=== PATIENT | male | born 1965 ===

== ENCOUNTER 2020-04-09 13:46 | Inpatient (IN) | payer OTHER, SELFPAY ==
[2020-04-10] MEDS ORDERED: Albuterol Sulfate 2.5 mg/3 ml Neb NEB PRN (02:23)
[2020-04-10] MEDS ORDERED: Dextrose 50% Abboject 50 ML SYRINGE SLOW IVP PRN (02:25)
[2020-04-10] MEDS ORDERED: Dextrose 5% in Water 1,000 ML IV PRN (02:25)
[2020-04-10 02:52] LABS: #Basophils 0.1 thou/uL (0.0-0.2); #Lymphocytes 1.2 thou/uL (1.20-3.40); #Monocytes 1.2 thou/uL (0.11-0.59); #Neutrophils 16.4 thou/uL (1.40-6.50); %Basophils 0.6 % (0.0-1.0); %Eosinophils 0.2 % (0.0-10.0); %Lymphocytes 6.4 % (21.0-51.0); %Monocytes 6.3 % (0.0-10.0); %Neutrophils 86.5 % (42.0-75.0); Hemoglobin 13.5 g/dL (14.0-18.0); Mean Corpuscular HGB CONC 32.5 g/dL (32.0-36.0); Mean Corpuscular Hemoglobin 29.4 pg (27.0-31.0); Mean Corpuscular Volume 90.2 fL (78.0-98.0); Mean Platelet Volume 8.4 fL (7.4-10.4); Platelet Count 322 thou/uL (130-400); RBC Distribution Width 13.6 % (11.5-14.5); Red Blood Cell (RBC) Count 4.59 mill/uL (4.70-6.10); White Blood Cell (WBC) Count 18.9 thou/uL (4.8-10.8)
[2020-04-10 03:01] LABS: ALT (SGPT) 93 U/L (8-55); AST (SGOT) 59 U/L (5-34); Albumin 3.3 g/dL (3.5-5.0); Alkaline Phosphatase 146 U/L (40-110); Anion Gap 20 mmol/L (10-20); BUN (Urea Nitrogen) 32 mg/dL (8.4-25.7); Bilirubin, Total 0.6 mg/dL (0.2-1.2); Calc. Creatinine Clearance 183 mL/min (70-130); Calcium 9.7 mg/dL (7.8-10.44); Carbon Dioxide 19 mmol/L (22-29); Chloride 103 mmol/L (98-107); Globulin 4.5 g/dL (2.4-3.5); Glucose 146 mg/dL (70-105); Potassium 4.7 mmol/L (3.5-5.1); Protein, Total 7.8 g/dL (6.0-8.3); Sodium 137 mmol/L (136-145)
[2020-04-10] MEDS: Guaifenesin DM 100-10/5 ML UDCUP PO PRN ×3 (03:30→12:23)
[2020-04-10] MEDS: Ascorbic Acid 500 mg Chewable Tablet PO SCH (08:12)
[2020-04-10] MEDS: Dexamethasone 4 MG TAB PO SCH (08:12)
[2020-04-10] MEDS: Zinc Sulfate 220 MG CAP PO SCH (08:13)
[2020-04-10] MEDS ORDERED: Enoxaparin Sodium 40 MG/0.4 ML SYRINGE SC SCH (09:00)
[2020-04-10] MEDS ORDERED: Non-Formulary Item 1 EACH (Dulaglutide [Trulicity] 0.75 MG/0.5 ML Pen.Injctr) SC SCH (12:00)
[2020-04-10] MEDS: Acetaminophen 325 MG TAB PO PRN (12:23)
[2020-04-10] MEDS: Enoxaparin Sodium 40 MG/0.4 ML SYRINGE SC SCH (21:34)
[2020-04-10] MEDS: metFORMIN 500 MG TAB PO SCH (21:35)
[2020-04-10] MEDS: Fish Oil 1,000 MG CAP PO SCH (21:35)
[2020-04-10] MEDS: Lisinopril 10 MG TAB PO SCH (21:36)
[2020-04-10] MEDS: Empagliflozin 10 MG TAB PO SCH (21:40)
[2020-04-10] MEDS: HumaLOG 300 UNITS/3 ML VIAL SC PRN (21:41)
[2020-04-11] MEDS: Guaifenesin DM 100-10/5 ML UDCUP PO PRN ×3 (06:13→18:19)
[2020-04-11 07:29] LABS: Hemoglobin 13.9 g/dL (14.0-18.0); Mean Corpuscular HGB CONC 33.5 g/dL (32.0-36.0); Mean Corpuscular Hemoglobin 30.1 pg (27.0-31.0); Mean Corpuscular Volume 89.7 fL (78.0-98.0); Mean Platelet Volume 8.8 fL (7.4-10.4); Platelet Count 322 thou/uL (130-400); RBC Distribution Width 13.6 % (11.5-14.5); Red Blood Cell (RBC) Count 4.63 mill/uL (4.70-6.10); White Blood Cell (WBC) Count 16.8 thou/uL (4.8-10.8)
[2020-04-11] MEDS: Atorvastatin Calcium 40 MG TAB PO SCH (07:39)
[2020-04-11] MEDS: Ascorbic Acid 500 mg Chewable Tablet PO SCH ×2 (07:39→20:45)
[2020-04-11] MEDS: Dexamethasone 4 MG TAB PO SCH (07:39)
[2020-04-11] MEDS: Cholecalciferol (Vitamin D3) 400 UNITS TAB PO SCH (07:40)
[2020-04-11] MEDS: metFORMIN 500 MG TAB PO SCH ×2 (07:40→20:45)
[2020-04-11] MEDS: Zinc Sulfate 220 MG CAP PO SCH (07:40)
[2020-04-11] MEDS: Enoxaparin Sodium 40 MG/0.4 ML SYRINGE SC SCH ×2 (07:40→20:47)
[2020-04-11] MEDS: Fish Oil 1,000 MG CAP PO SCH ×2 (07:40→20:45)
[2020-04-11 07:43] LABS: ALT (SGPT) 90 U/L (8-55); AST (SGOT) 62 U/L (5-34); Albumin 3.3 g/dL (3.5-5.0); Alkaline Phosphatase 130 U/L (40-110); Anion Gap 13 mmol/L (10-20); BUN (Urea Nitrogen) 31 mg/dL (8.4-25.7); Bilirubin, Total 0.6 mg/dL (0.2-1.2); Calc. Creatinine Clearance 174 mL/min (70-130); Calcium 9.7 mg/dL (7.8-10.44); Carbon Dioxide 25 mmol/L (22-29); Chloride 103 mmol/L (98-107); Globulin 4.5 g/dL (2.4-3.5); Glucose 118 mg/dL (70-105); Potassium 4.2 mmol/L (3.5-5.1); Protein, Total 7.8 g/dL (6.0-8.3); Sodium 137 mmol/L (136-145)
[2020-04-11] MEDS ORDERED: Ondansetron PF 4 MG/2 ML Vial IVP PRN (08:42)
[2020-04-11 08:46] LABS: Band 10 % (5-11); Lymphocytes 10 % (21-51); MDiff Complete? YES; Metamyelocyte 1 % (0-0); Monocytes 4 % (0-10); Myelocyte 1 % (0-0); Neutrophil 73 % (42-75); Platelet Morphology Comment Appears Adequate; Polychromasia SLIGHT = 2-3 cells (100X) (0-2/hpf); Reactive Lymphocytes 1 % (0-10)
[2020-04-11] MEDS: Empagliflozin 10 MG TAB PO SCH ×2 (09:01→20:46)
[2020-04-11] MEDS: Lisinopril 10 MG TAB PO SCH (20:59)
[2020-04-12 05:49] LABS: ALT (SGPT) 81 U/L (8-55); AST (SGOT) 50 U/L (5-34); Albumin 3.2 g/dL (3.5-5.0); Alkaline Phosphatase 122 U/L (40-110); Anion Gap 16 mmol/L (10-20); BUN (Urea Nitrogen) 26 mg/dL (8.4-25.7); Bilirubin, Total 0.8 mg/dL (0.2-1.2); CRP (Inflammatory) 13.32 mg/dL (= or < 0.5); Calc. Creatinine Clearance 151 mL/min (70-130); Calcium 9.6 mg/dL (7.8-10.44); Carbon Dioxide 26 mmol/L (22-29); Chloride 103 mmol/L (98-107); Globulin 4.7 g/dL (2.4-3.5); Glucose 88 mg/dL (70-105); Potassium 4.7 mmol/L (3.5-5.1); Protein, Total 7.9 g/dL (6.0-8.3); Sodium 140 mmol/L (136-145)
[2020-04-12 05:57] LABS: Band 5 % (5-11); Lymphocytes 10 % (21-51); MDiff Complete? YES; Mean Corpuscular HGB CONC 33.1 g/dL (32.0-36.0); Mean Corpuscular Hemoglobin 30.1 pg (27.0-31.0); Mean Corpuscular Volume 91.2 fL (78.0-98.0); Mean Platelet Volume 8.3 fL (7.4-10.4); Metamyelocyte 2 % (0-0); Monocytes 6 % (0-10); Myelocyte 3 % (0-0); Neutrophil 72 % (42-75); Platelet Count 337 thou/uL (130-400); RBC Distribution Width 13.4 % (11.5-14.5); Reactive Lymphocytes 2 % (0-10); Red Blood Cell (RBC) Count 4.63 mill/uL (4.70-6.10); White Blood Cell (WBC) Count 15.6 thou/uL (4.8-10.8)
[2020-04-12] MEDS: Ascorbic Acid 500 mg Chewable Tablet PO SCH ×2 (08:37→21:58)
[2020-04-12] MEDS: Dexamethasone 4 MG TAB PO SCH (08:37)
[2020-04-12] MEDS: Atorvastatin Calcium 40 MG TAB PO SCH (08:37)
[2020-04-12] MEDS: Cholecalciferol (Vitamin D3) 400 UNITS TAB PO SCH (08:38)
[2020-04-12] MEDS: Fish Oil 1,000 MG CAP PO SCH ×2 (08:38→21:58)
[2020-04-12] MEDS: metFORMIN 500 MG TAB PO SCH (08:38)
[2020-04-12] MEDS: Enoxaparin Sodium 40 MG/0.4 ML SYRINGE SC SCH ×2 (08:38→21:58)
[2020-04-12] MEDS: Empagliflozin 10 MG TAB PO SCH (08:38)
[2020-04-12] MEDS: Zinc Sulfate 220 MG CAP PO SCH (08:38)
[2020-04-12] MEDS: Guaifenesin DM 100-10/5 ML UDCUP PO PRN (08:39)
[2020-04-12] MEDS: Insulin Glargine 15 UNITS in Pre-Filled Syringe 1 EACH SC SCH (21:59)
[2020-04-12] MEDS: Lisinopril 10 MG TAB PO SCH (22:04)
[2020-04-13 07:25] LABS: ALT (SGPT) 68 U/L (8-55); AST (SGOT) 48 U/L (5-34); Albumin 3.3 g/dL (3.5-5.0); Alkaline Phosphatase 111 U/L (40-110); Anion Gap 16 mmol/L (10-20); BUN (Urea Nitrogen) 23 mg/dL (8.4-25.7); Calc. Creatinine Clearance 161 mL/min (70-130); Calcium 9.9 mg/dL (7.8-10.44); Carbon Dioxide 25 mmol/L (22-29); Chloride 100 mmol/L (98-107); Globulin 4.8 g/dL (2.4-3.5); Glucose 83 mg/dL (70-105); Potassium 4.9 mmol/L (3.5-5.1); Protein, Total 8.1 g/dL (6.0-8.3); Sodium 136 mmol/L (136-145)
[2020-04-13] MEDS: Guaifenesin DM 100-10/5 ML UDCUP PO PRN (07:43)
[2020-04-13] MEDS: Atorvastatin Calcium 40 MG TAB PO SCH (07:44)
[2020-04-13] MEDS: Fish Oil 1,000 MG CAP PO SCH ×2 (07:44→20:36)
[2020-04-13] MEDS: Dexamethasone 4 MG TAB PO SCH (07:44)
[2020-04-13] MEDS: Ascorbic Acid 500 mg Chewable Tablet PO SCH ×2 (07:44→20:36)
[2020-04-13] MEDS: Zinc Sulfate 220 MG CAP PO SCH (07:44)
[2020-04-13] MEDS: Enoxaparin Sodium 40 MG/0.4 ML SYRINGE SC SCH ×2 (07:44→20:36)
[2020-04-13] MEDS: Cholecalciferol (Vitamin D3) 400 UNITS TAB PO SCH (07:44)
[2020-04-13 10:10] LABS: Band 15 % (5-11); Hemoglobin 14.1 g/dL (14.0-18.0); Lymphocytes 10 % (21-51); MDiff Complete? YES; Mean Corpuscular HGB CONC 32.8 g/dL (32.0-36.0); Mean Corpuscular Hemoglobin 29.6 pg (27.0-31.0); Mean Corpuscular Volume 90.2 fL (78.0-98.0); Mean Platelet Volume 9.5 fL (7.4-10.4); Monocytes 3 % (0-10); Myelocyte 1 % (0-0); Neutrophil 70 % (42-75); Platelet Count 332 thou/uL (130-400); Platelet Morphology Comment Appears Adequate; RBC Distribution Width 13.6 % (11.5-14.5); RBC Morphology Normal; Reactive Lymphocytes 1 % (0-10); Red Blood Cell (RBC) Count 4.78 mill/uL (4.70-6.10); White Blood Cell (WBC) Count 17.7 thou/uL (4.8-10.8)
[2020-04-13] MEDS: Senokot S 8.6-50 MG TAB PO PRN (10:38)
[2020-04-13] MEDS: HumaLOG 300 UNITS/3 ML VIAL SC PRN (17:11)
[2020-04-13] MEDS: Lisinopril 10 MG TAB PO SCH ×2 (20:36→21:00)
[2020-04-13] MEDS: Insulin Glargine 15 UNITS in Pre-Filled Syringe 1 EACH SC SCH (20:37)
[2020-04-14 06:51] LABS: Hemoglobin 14.2 g/dL (14.0-18.0); Mean Corpuscular HGB CONC 32.8 g/dL (32.0-36.0); Mean Corpuscular Hemoglobin 29.8 pg (27.0-31.0); Mean Corpuscular Volume 90.7 fL (78.0-98.0); Mean Platelet Volume 8.6 fL (7.4-10.4); Platelet Count 313 thou/uL (130-400); RBC Distribution Width 13.3 % (11.5-14.5); Red Blood Cell (RBC) Count 4.79 mill/uL (4.70-6.10); White Blood Cell (WBC) Count 19.7 thou/uL (4.8-10.8)
[2020-04-14 07:23] LABS: ALT (SGPT) 78 U/L (8-55); AST (SGOT) 51 U/L (5-34); Alkaline Phosphatase 107 U/L (40-110); Anion Gap 15 mmol/L (10-20); BUN (Urea Nitrogen) 21 mg/dL (8.4-25.7); Bilirubin, Total 0.9 mg/dL (0.2-1.2); CRP (Inflammatory) 15.23 mg/dL (= or < 0.5); Calc. Creatinine Clearance 151 mL/min (70-130); Calcium 9.4 mg/dL (7.8-10.44); Carbon Dioxide 25 mmol/L (22-29); Chloride 98 mmol/L (98-107); Globulin 4.5 g/dL (2.4-3.5); Glucose 94 mg/dL (70-105); Potassium 4.5 mmol/L (3.5-5.1); Protein, Total 7.5 g/dL (6.0-8.3); Sodium 133 mmol/L (136-145)
[2020-04-14 07:39] LABS: Band 12 % (5-11); Lymphocytes 9 % (21-51); MDiff Complete? YES; Metamyelocyte 3 % (0-0); Monocytes 2 % (0-10); Myelocyte 1 % (0-0); Neutrophil 72 % (42-75); Platelet Morphology Comment Appears Adequate; Polychromasia SLIGHT = 2-3 cells (100X) (0-2/hpf); Reactive Lymphocytes 1 % (0-10)
[2020-04-14] MEDS: Guaifenesin DM 100-10/5 ML UDCUP PO PRN (08:29)
[2020-04-14] MEDS: Enoxaparin Sodium 40 MG/0.4 ML SYRINGE SC SCH ×2 (08:29→21:37)
[2020-04-14] MEDS: Atorvastatin Calcium 40 MG TAB PO SCH (08:30)
[2020-04-14] MEDS: Ascorbic Acid 500 mg Chewable Tablet PO SCH ×2 (08:30→21:37)
[2020-04-14] MEDS: Fish Oil 1,000 MG CAP PO SCH ×2 (08:30→21:37)
[2020-04-14] MEDS: Zinc Sulfate 220 MG CAP PO SCH (08:30)
[2020-04-14] MEDS: Cholecalciferol (Vitamin D3) 400 UNITS TAB PO SCH (08:30)
[2020-04-14] MEDS: Senokot S 8.6-50 MG TAB PO PRN (08:30)
[2020-04-14] MEDS: Dexamethasone 4 MG TAB PO SCH (08:30)
[2020-04-14] MEDS: HumaLOG 300 UNITS/3 ML VIAL SC PRN ×3 (12:02→21:42)
[2020-04-14] MEDS: Insulin Glargine 15 UNITS in Pre-Filled Syringe 1 EACH SC SCH (21:36)
[2020-04-14] MEDS: Doxycycline 100 MG CAP PO SCH (21:37)
[2020-04-14] MEDS: Lisinopril 10 MG TAB PO SCH (21:40)
[2020-04-15 05:51] LABS: ALT (SGPT) 110 U/L (8-55); AST (SGOT) 62 U/L (5-34); Albumin 2.9 g/dL (3.5-5.0); Alkaline Phosphatase 130 U/L (40-110); Anion Gap 16 mmol/L (10-20); BUN (Urea Nitrogen) 19 mg/dL (8.4-25.7); Bilirubin, Total 0.9 mg/dL (0.2-1.2); CRP (Inflammatory) 19.58 mg/dL (= or < 0.5); Calc. Creatinine Clearance 151 mL/min (70-130); Calcium 9.3 mg/dL (7.8-10.44); Carbon Dioxide 22 mmol/L (22-29); Chloride 99 mmol/L (98-107); Globulin 4.6 g/dL (2.4-3.5); Glucose 104 mg/dL (70-105); Potassium 4.2 mmol/L (3.5-5.1); Protein, Total 7.5 g/dL (6.0-8.3); Sodium 133 mmol/L (136-145)
[2020-04-15 07:53] LABS: Hemoglobin 13.9 g/dL (14.0-18.0); Mean Corpuscular HGB CONC 31.3 g/dL (32.0-36.0); Mean Corpuscular Hemoglobin 28.2 pg (27.0-31.0); Platelet Count 236 thou/uL (130-400); RBC Distribution Width 13.5 % (11.5-14.5); Red Blood Cell (RBC) Count 4.94 mill/uL (4.70-6.10); White Blood Cell (WBC) Count 17.9 thou/uL (4.8-10.8)
[2020-04-15 08:08] LABS: Band 10 % (5-11); Eosinophils 1 % (0-10); Lymphocytes 11 % (21-51); MDiff Complete? YES; Metamyelocyte 2 % (0-0); Monocytes 1 % (0-10); Myelocyte 3 % (0-0); Neutrophil 71 % (42-75); Nucleated RBC 1 % (0); Platelet Morphology Comment Appears Adequate; Polychromasia SLIGHT = 2-3 cells (100X) (0-2/hpf); Reactive Lymphocytes 1 % (0-10); Vacuoles SLIGHT
[2020-04-15] MEDS: Ascorbic Acid 500 mg Chewable Tablet PO SCH ×2 (08:20→21:45)
[2020-04-15] MEDS: Enoxaparin Sodium 40 MG/0.4 ML SYRINGE SC SCH ×2 (08:20→21:45)
[2020-04-15] MEDS: Zinc Sulfate 220 MG CAP PO SCH (08:20)
[2020-04-15] MEDS: Doxycycline 100 MG CAP PO SCH ×2 (08:21→21:45)
[2020-04-15] MEDS: Dexamethasone 4 MG TAB PO SCH ×2 (08:21→19:15)
[2020-04-15] MEDS: Atorvastatin Calcium 40 MG TAB PO SCH (08:21)
[2020-04-15] MEDS: Cholecalciferol (Vitamin D3) 400 UNITS TAB PO SCH (08:21)
[2020-04-15] MEDS: Fish Oil 1,000 MG CAP PO SCH ×2 (08:21→21:45)
[2020-04-15] MEDS: Lisinopril 10 MG TAB PO SCH (21:45)
[2020-04-15] MEDS: HumaLOG 300 UNITS/3 ML VIAL SC PRN (21:46)
[2020-04-15] MEDS: Insulin Glargine 15 UNITS in Pre-Filled Syringe 1 EACH SC SCH (21:46)
[2020-04-16 06:08] LABS: #Eosinphils 0.1 thou/uL (0.0-0.7); #Monocytes 0.3 thou/uL (0.11-0.59); #Neutrophils 12.9 thou/uL (1.40-6.50); %Basophils 0.1 % (0.0-1.0); %Eosinophils 0.5 % (0.0-10.0); %Lymphocytes 7.3 % (21.0-51.0); %Monocytes 1.8 % (0.0-10.0); %Neutrophils 90.3 % (42.0-75.0); Hemoglobin 14.2 g/dL (14.0-18.0); Mean Corpuscular HGB CONC 32.3 g/dL (32.0-36.0); Mean Corpuscular Hemoglobin 28.8 pg (27.0-31.0); Mean Corpuscular Volume 89.3 fL (78.0-98.0); Platelet Count 310 thou/uL (130-400); RBC Distribution Width 13.4 % (11.5-14.5); Red Blood Cell (RBC) Count 4.95 mill/uL (4.70-6.10); White Blood Cell (WBC) Count 14.2 thou/uL (4.8-10.8)
[2020-04-16 06:32] LABS: ALT (SGPT) 159 U/L (8-55); AST (SGOT) 75 U/L (5-34); Albumin 3.1 g/dL (3.5-5.0); Alkaline Phosphatase 177 U/L (40-110); Anion Gap 16 mmol/L (10-20); BUN (Urea Nitrogen) 18 mg/dL (8.4-25.7); Bilirubin, Total 0.9 mg/dL (0.2-1.2); Calc. Creatinine Clearance 176 mL/min (70-130); Calcium 8.7 mg/dL (7.8-10.44); Carbon Dioxide 25 mmol/L (22-29); Chloride 99 mmol/L (98-107); Globulin 3.8 g/dL (2.4-3.5); Glucose 164 mg/dL (70-105); Potassium 4.9 mmol/L (3.5-5.1); Protein, Total 6.9 g/dL (6.0-8.3); Sodium 135 mmol/L (136-145)
[2020-04-16] MEDS: Dexamethasone 4 MG TAB PO SCH ×2 (09:00→16:43)
[2020-04-16] MEDS: Zinc Sulfate 220 MG CAP PO SCH (09:06)
[2020-04-16] MEDS: Cholecalciferol (Vitamin D3) 400 UNITS TAB PO SCH (09:06)
[2020-04-16] MEDS: Atorvastatin Calcium 40 MG TAB PO SCH (09:07)
[2020-04-16] MEDS: Enoxaparin Sodium 40 MG/0.4 ML SYRINGE SC SCH ×2 (09:07→20:46)
[2020-04-16] MEDS: Doxycycline 100 MG CAP PO SCH ×2 (09:07→20:45)
[2020-04-16] MEDS: Ascorbic Acid 500 mg Chewable Tablet PO SCH ×2 (09:07→20:45)
[2020-04-16] MEDS: Fish Oil 1,000 MG CAP PO SCH ×2 (09:07→20:46)
[2020-04-16] MEDS ORDERED: AFRIN NASAL MIST 15 ML BOT NS SCH (16:15)
[2020-04-16] MEDS: HumaLOG 300 UNITS/3 ML VIAL SC PRN ×2 (17:21→20:46)
[2020-04-16] MEDS: Oxymetazoline HCl 0.05% (30 ML BOT) NS SCH (20:44)
[2020-04-16] MEDS: Insulin Glargine 15 UNITS in Pre-Filled Syringe 1 EACH SC SCH (20:46)
[2020-04-17] MEDS: Oxymetazoline HCl 0.05% (30 ML BOT) NS SCH ×2 (05:01→17:59)
[2020-04-17] MEDS: HumaLOG 300 UNITS/3 ML VIAL SC PRN ×2 (05:45→19:42)
[2020-04-17 06:58] LABS: #Lymphocytes 1.1 thou/uL (1.20-3.40); #Monocytes 0.6 thou/uL (0.11-0.59); #Neutrophils 15.4 thou/uL (1.40-6.50); %Basophils 0.1 % (0.0-1.0); %Eosinophils 0.1 % (0.0-10.0); %Lymphocytes 6.3 % (21.0-51.0); %Monocytes 3.5 % (0.0-10.0); %Neutrophils 90.1 % (42.0-75.0); Hemoglobin 13.9 g/dL (14.0-18.0); Mean Corpuscular HGB CONC 32.7 g/dL (32.0-36.0); Mean Corpuscular Volume 88.6 fL (78.0-98.0); Mean Platelet Volume 9.1 fL (7.4-10.4); Platelet Count 300 thou/uL (130-400); RBC Distribution Width 13.3 % (11.5-14.5); Red Blood Cell (RBC) Count 4.79 mill/uL (4.70-6.10); White Blood Cell (WBC) Count 17.1 thou/uL (4.8-10.8)
[2020-04-17 07:20] LABS: ALT (SGPT) 123 U/L (8-55); AST (SGOT) 44 U/L (5-34); Albumin 2.9 g/dL (3.5-5.0); Alkaline Phosphatase 153 U/L (40-110); Anion Gap 14 mmol/L (10-20); BUN (Urea Nitrogen) 19 mg/dL (8.4-25.7); Bilirubin, Total 0.6 mg/dL (0.2-1.2); Calc. Creatinine Clearance 185 mL/min (70-130); Carbon Dioxide 19 mmol/L (22-29); Chloride 102 mmol/L (98-107); Globulin 4.2 g/dL (2.4-3.5); Glucose 156 mg/dL (70-105); Potassium 4.4 mmol/L (3.5-5.1); Protein, Total 7.1 g/dL (6.0-8.3); Sodium 131 mmol/L (136-145)
[2020-04-17] MEDS: Dexamethasone 4 MG TAB PO SCH ×2 (09:27→17:57)
[2020-04-17] MEDS: Atorvastatin Calcium 40 MG TAB PO SCH (09:27)
[2020-04-17] MEDS: Zinc Sulfate 220 MG CAP PO SCH (09:27)
[2020-04-17] MEDS: Enoxaparin Sodium 40 MG/0.4 ML SYRINGE SC SCH ×2 (09:27→19:27)
[2020-04-17] MEDS: Cholecalciferol (Vitamin D3) 400 UNITS TAB PO SCH (09:27)
[2020-04-17] MEDS: Doxycycline 100 MG CAP PO SCH ×2 (09:27→19:27)
[2020-04-17] MEDS: Ascorbic Acid 500 mg Chewable Tablet PO SCH ×2 (09:27→19:27)
[2020-04-17] MEDS: Fish Oil 1,000 MG CAP PO SCH ×2 (09:27→19:27)
[2020-04-17] MEDS: Insulin Glargine 15 UNITS in Pre-Filled Syringe 1 EACH SC SCH (19:27)
[2020-04-18] MEDS: Oxymetazoline HCl 0.05% (30 ML BOT) NS SCH ×2 (05:41→17:01)
[2020-04-18] MEDS: HumaLOG 300 UNITS/3 ML VIAL SC PRN ×3 (05:48→21:47)
[2020-04-18] MEDS: Zinc Sulfate 220 MG CAP PO SCH (08:23)
[2020-04-18] MEDS: Cholecalciferol (Vitamin D3) 400 UNITS TAB PO SCH (08:23)
[2020-04-18] MEDS: Atorvastatin Calcium 40 MG TAB PO SCH (08:23)
[2020-04-18] MEDS: Ascorbic Acid 500 mg Chewable Tablet PO SCH ×2 (08:23→19:43)
[2020-04-18] MEDS: Doxycycline 100 MG CAP PO SCH ×2 (08:23→19:43)
[2020-04-18] MEDS: Dexamethasone 4 MG TAB PO SCH ×2 (08:23→17:01)
[2020-04-18] MEDS: Enoxaparin Sodium 40 MG/0.4 ML SYRINGE SC SCH ×2 (08:24→19:43)
[2020-04-18] MEDS: Fish Oil 1,000 MG CAP PO SCH ×2 (08:24→19:43)
[2020-04-18 10:43] LABS: #Basophils 0.1 thou/uL (0.0-0.2); #Lymphocytes 1.3 thou/uL (1.20-3.40); #Monocytes 0.9 thou/uL (0.11-0.59); #Neutrophils 17.1 thou/uL (1.40-6.50); %Basophils 0.7 % (0.0-1.0); %Eosinophils 0.2 % (0.0-10.0); %Lymphocytes 6.5 % (21.0-51.0); %Monocytes 4.9 % (0.0-10.0); %Neutrophils 87.9 % (42.0-75.0); Hemoglobin 14.6 g/dL (14.0-18.0); Mean Corpuscular HGB CONC 33.5 g/dL (32.0-36.0); Mean Corpuscular Hemoglobin 30.2 pg (27.0-31.0); Mean Corpuscular Volume 90.4 fL (78.0-98.0); Mean Platelet Volume 9.4 fL (7.4-10.4); Platelet Count 294 thou/uL (130-400); RBC Distribution Width 13.4 % (11.5-14.5); Red Blood Cell (RBC) Count 4.83 mill/uL (4.70-6.10); White Blood Cell (WBC) Count 19.4 thou/uL (4.8-10.8)
[2020-04-18 11:04] LABS: ALT (SGPT) 110 U/L (8-55); AST (SGOT) 44 U/L (5-34); Albumin 2.9 g/dL (3.5-5.0); Alkaline Phosphatase 147 U/L (40-110); Anion Gap 17 mmol/L (10-20); BUN (Urea Nitrogen) 19 mg/dL (8.4-25.7); Bilirubin, Total 0.6 mg/dL (0.2-1.2); Calc. Creatinine Clearance 183 mL/min (70-130); Calcium 9.2 mg/dL (7.8-10.44); Carbon Dioxide 20 mmol/L (22-29); Chloride 101 mmol/L (98-107); Globulin 4.3 g/dL (2.4-3.5); Glucose 172 mg/dL (70-105); Potassium 4.6 mmol/L (3.5-5.1); Protein, Total 7.2 g/dL (6.0-8.3); Sodium 133 mmol/L (136-145)
[2020-04-18] MEDS: Insulin Glargine 15 UNITS in Pre-Filled Syringe 1 EACH SC SCH (21:47)
[2020-04-19] MEDS: Oxymetazoline HCl 0.05% (30 ML BOT) NS SCH (05:21)
[2020-04-19] MEDS: HumaLOG 300 UNITS/3 ML VIAL SC PRN ×2 (05:21→20:38)
[2020-04-19] MEDS: Doxycycline 100 MG CAP PO SCH (07:52)
[2020-04-19] MEDS: Atorvastatin Calcium 40 MG TAB PO SCH (07:52)
[2020-04-19] MEDS: Fish Oil 1,000 MG CAP PO SCH ×2 (07:52→20:37)
[2020-04-19] MEDS: Cholecalciferol (Vitamin D3) 400 UNITS TAB PO SCH (07:52)
[2020-04-19] MEDS: Zinc Sulfate 220 MG CAP PO SCH (07:53)
[2020-04-19] MEDS: Enoxaparin Sodium 40 MG/0.4 ML SYRINGE SC SCH ×2 (07:53→20:37)
[2020-04-19] MEDS: Ascorbic Acid 500 mg Chewable Tablet PO SCH ×2 (07:53→20:37)
[2020-04-19] MEDS: Dexamethasone 4 MG TAB PO SCH ×2 (07:53→16:39)
[2020-04-19 09:52] LABS: #Basophils 0.1 thou/uL (0.0-0.2); #Lymphocytes 1.5 thou/uL (1.20-3.40); #Monocytes 0.9 thou/uL (0.11-0.59); #Neutrophils 16.6 thou/uL (1.40-6.50); %Basophils 0.3 % (0.0-1.0); %Eosinophils 0.2 % (0.0-10.0); %Lymphocytes 7.7 % (21.0-51.0); %Monocytes 4.5 % (0.0-10.0); %Neutrophils 87.4 % (42.0-75.0); Hemoglobin 14.5 g/dL (14.0-18.0); Mean Corpuscular HGB CONC 34.6 g/dL (32.0-36.0); Mean Corpuscular Hemoglobin 31.1 pg (27.0-31.0); Mean Corpuscular Volume 89.9 fL (78.0-98.0); Mean Platelet Volume 9.3 fL (7.4-10.4); Platelet Count 282 thou/uL (130-400); RBC Distribution Width 13.3 % (11.5-14.5); Red Blood Cell (RBC) Count 4.65 mill/uL (4.70-6.10)
[2020-04-19] MEDS: Cefepime 2 GM in Sodium Chloride 0.9% 100 ML IVPB SCH (20:36)
[2020-04-19] MEDS: Insulin Glargine 15 UNITS in Pre-Filled Syringe 1 EACH SC SCH (20:37)
[2020-04-19] MEDS: VANCOMYCIN 1.25 GM/250 ML BAG 1.25 GM in Premix Bag 1 BAG IVPB SCH (20:38)
[2020-04-20] MEDS: Cefepime 2 GM in Sodium Chloride 0.9% 100 ML IVPB SCH ×3 (03:41→20:13)
[2020-04-20] MEDS: HumaLOG 300 UNITS/3 ML VIAL SC PRN ×2 (05:49→20:48)
[2020-04-20 07:23] LABS: #Monocytes 0.7 thou/uL (0.11-0.59); #Neutrophils 16.1 thou/uL (1.40-6.50); %Eosinophils 0.2 % (0.0-10.0); %Lymphocytes 5.5 % (21.0-51.0); %Monocytes 4.1 % (0.0-10.0); %Neutrophils 90.2 % (42.0-75.0); Hemoglobin 14.4 g/dL (14.0-18.0); Mean Corpuscular HGB CONC 34.3 g/dL (32.0-36.0); Mean Corpuscular Hemoglobin 30.9 pg (27.0-31.0); Mean Corpuscular Volume 89.9 fL (78.0-98.0); Mean Platelet Volume 8.8 fL (7.4-10.4); Platelet Count 268 thou/uL (130-400); RBC Distribution Width 13.4 % (11.5-14.5); Red Blood Cell (RBC) Count 4.67 mill/uL (4.70-6.10); White Blood Cell (WBC) Count 17.9 thou/uL (4.8-10.8)
[2020-04-20 07:43] LABS: Anion Gap 9 mmol/L (10-20); BUN (Urea Nitrogen) 18 mg/dL (8.4-25.7); Calc. Creatinine Clearance 183 mL/min (70-130); Calcium 8.5 mg/dL (7.8-10.44); Carbon Dioxide 24 mmol/L (22-29); Chloride 103 mmol/L (98-107); Glucose 161 mg/dL (70-105); Potassium 4.2 mmol/L (3.5-5.1); Sodium 132 mmol/L (136-145)
[2020-04-20] MEDS: Enoxaparin Sodium 40 MG/0.4 ML SYRINGE SC SCH ×2 (07:54→20:14)
[2020-04-20] MEDS: Atorvastatin Calcium 40 MG TAB PO SCH (07:54)
[2020-04-20] MEDS: Ascorbic Acid 500 mg Chewable Tablet PO SCH ×2 (07:54→20:13)
[2020-04-20] MEDS: Fish Oil 1,000 MG CAP PO SCH ×2 (07:54→20:14)
[2020-04-20] MEDS: Dexamethasone 4 MG TAB PO SCH ×2 (07:54→16:43)
[2020-04-20] MEDS: Cholecalciferol (Vitamin D3) 400 UNITS TAB PO SCH (07:54)
[2020-04-20] MEDS: Zinc Sulfate 220 MG CAP PO SCH (07:54)
[2020-04-20] MEDS: VANCOMYCIN 1.25 GM/250 ML BAG 1.25 GM in Premix Bag 1 BAG IVPB SCH ×2 (10:42→20:14)
[2020-04-20] MEDS: Insulin Glargine 15 UNITS in Pre-Filled Syringe 1 EACH SC SCH (20:14)
[2020-04-21] MEDS: Cefepime 2 GM in Sodium Chloride 0.9% 100 ML IVPB SCH ×3 (04:45→19:12)
[2020-04-21] MEDS: HumaLOG 300 UNITS/3 ML VIAL SC PRN ×4 (06:50→21:06)
[2020-04-21] MEDS: Atorvastatin Calcium 40 MG TAB PO SCH (08:05)
[2020-04-21] MEDS: Senokot S 8.6-50 MG TAB PO PRN (08:05)
[2020-04-21] MEDS: Fish Oil 1,000 MG CAP PO SCH ×2 (08:05→19:50)
[2020-04-21] MEDS: Enoxaparin Sodium 40 MG/0.4 ML SYRINGE SC SCH ×2 (08:05→19:50)
[2020-04-21] MEDS: Dexamethasone 4 MG TAB PO SCH ×2 (08:05→17:05)
[2020-04-21] MEDS: Ascorbic Acid 500 mg Chewable Tablet PO SCH ×2 (08:05→19:50)
[2020-04-21] MEDS: Cholecalciferol (Vitamin D3) 400 UNITS TAB PO SCH (08:05)
[2020-04-21] MEDS: Zinc Sulfate 220 MG CAP PO SCH (08:05)
[2020-04-21] MEDS: Guaifenesin DM 100-10/5 ML UDCUP PO PRN (08:06)
[2020-04-21 09:29] LABS: #Lymphocytes 1.1 thou/uL (1.20-3.40); #Monocytes 0.9 thou/uL (0.11-0.59); #Neutrophils 17.3 thou/uL (1.40-6.50); %Basophils 0.2 % (0.0-1.0); %Eosinophils 0.1 % (0.0-10.0); %Lymphocytes 5.6 % (21.0-51.0); %Monocytes 4.4 % (0.0-10.0); %Neutrophils 89.7 % (42.0-75.0); Hemoglobin 14.7 g/dL (14.0-18.0); Mean Corpuscular HGB CONC 33.4 g/dL (32.0-36.0); Mean Corpuscular Hemoglobin 29.6 pg (27.0-31.0); Mean Corpuscular Volume 88.6 fL (78.0-98.0); Mean Platelet Volume 8.7 fL (7.4-10.4); Platelet Count 295 thou/uL (130-400); RBC Distribution Width 13.7 % (11.5-14.5); Red Blood Cell (RBC) Count 4.97 mill/uL (4.70-6.10); White Blood Cell (WBC) Count 19.3 thou/uL (4.8-10.8)
[2020-04-21 09:48] LABS: Vancomycin, Trough 8.3 ug/mL
[2020-04-21 09:53] LABS: ALT (SGPT) 69 U/L (8-55); AST (SGOT) 23 U/L (5-34); Albumin 2.8 g/dL (3.5-5.0); Alkaline Phosphatase 114 U/L (40-110); Anion Gap 14 mmol/L (10-20); BUN (Urea Nitrogen) 15 mg/dL (8.4-25.7); Bilirubin, Direct 0.3 mg/dL (0.1-0.3); Bilirubin, Total 0.6 mg/dL (0.2-1.2); Calc. Creatinine Clearance 196 mL/min (70-130); Calcium 8.6 mg/dL (7.8-10.44); Carbon Dioxide 18 mmol/L (22-29); Chloride 104 mmol/L (98-107); Glucose 183 mg/dL (70-105); Potassium 3.9 mmol/L (3.5-5.1); Protein, Total 6.8 g/dL (6.0-8.3); Sodium 132 mmol/L (136-145)
[2020-04-21] MEDS ORDERED: VANCOMYCIN 1.25 GM/250 ML BAG 1.25 GM in Premix Bag 1 BAG IVPB SCH (10:00)
[2020-04-21] MEDS: VANCOMYCIN 1.25 GM/250 ML BAG 1.25 GM in Premix Bag 1 BAG IVPB SCH (10:04)
[2020-04-21] MEDS ORDERED: Vancomycin HCl 500 MG in Sodium Chloride 0.9% 100 ML IVPB SCH (11:45)
[2020-04-21] MEDS ORDERED: Propofol 1,000 MG/100 ML VIAL IV ONE (11:46)
[2020-04-21] MEDS ORDERED: Vecuronium 10 MG VIAL ONE (12:21)
[2020-04-21] MEDS ORDERED: Lorazepam 2 MG/ML VIAL ONE ×2 (12:21→13:38)
[2020-04-21] MEDS ORDERED: Fentanyl CADD 100 ML ONE (12:38)
[2020-04-21 12:54] LABS: Actual Bicarbonate (HCO3a) 23.8 mEq/L (22-28); Base Excess (BEa) -6.3 mEq/L (-2.0 to +3.0); Calcium, Ionized (arterial) 1.24 mmol/L (1.12-1.30); Carboxyhemoglobin (COHb) 0.6 gm% (0.0-3.0); Hemoglobin (Hb) 16.2 g/dL (14.0-18.0); O2 Tension (PaO2), arterial 76.3 mmHg (80.0-100.0); Potassium - ABG Lab 3.93 mmol/L (3.70-5.30)
[2020-04-21 13:00] LABS: CO2 Tension 67.2 mmHg (35.0-45.0); Puncture Site RRA; pH, Arterial 7.17 (7.35-7.45)
[2020-04-21] MEDS ORDERED: Sodium Bicarb 50 MEQ/50 ML Abboject 8.4% SYRINGE ONE (13:05)
[2020-04-21] MEDS ORDERED: Rocuronium Bromide 10 MG/ML (10ML VIAL) ONE (13:06)
[2020-04-21] MEDS ORDERED: Sodium Bicarb 50 MEQ/50 ML Abboject 8.4% SYRINGE IVP SCH ×2 (13:15→14:30)
[2020-04-21] MEDS: Propofol 1,000 MG/100 ML VIAL IV PRN ×4 (13:42→23:32)
[2020-04-21] MEDS: Lorazepam 2 MG/ML VIAL SLOW IVP PRN ×2 (13:42→15:53)
[2020-04-21] MEDS ORDERED: Ivermectin 3 MG TAB PO SCH (13:45)
[2020-04-21] MEDS ORDERED: Fentanyl BOLUS 250 ML IVPB PRN (13:45)
[2020-04-21] MEDS ORDERED: Sodium Chloride 0.9% (PF) 10 ML VIAL FS PRN (13:45)
[2020-04-21] MEDS ORDERED: Propofol BOLUS 1,000 MG/100 ML VIAL IV PRN (13:45)
[2020-04-21] MEDS ORDERED: DISCONTINUE PREVIOUS NARCOTIC PAIN MEDICATIONS AND BENZODIAZEPINES FS SCH (13:45)
[2020-04-21 14:16] LABS: Actual Bicarbonate (HCO3a) 28.9 mEq/L (22-28); Base Excess (BEa) -1.8 mEq/L (-2.0 to +3.0); Calcium, Ionized (arterial) 1.19 mmol/L (1.12-1.30); Carboxyhemoglobin (COHb) 0.6 gm% (0.0-3.0); Hemoglobin (Hb) 15.6 g/dL (14.0-18.0); O2 Tension (PaO2), arterial 60.6 mmHg (80.0-100.0); Potassium - ABG Lab 4.07 mmol/L (3.70-5.30)
[2020-04-21 14:29] LABS: Puncture Site RRA; pH, Arterial 7.19 (7.35-7.45)
[2020-04-21] MEDS: Rocuronium Bromide 50 MG/5 ML VIAL IVP PRN ×4 (15:53→22:24)
[2020-04-21 16:31] LABS: Actual Bicarbonate (HCO3a) 30.8 mEq/L (22-28); Base Excess (BEa) 3.3 mEq/L (-2.0 to +3.0); CO2 Tension 58.5 mmHg (35.0-45.0); Calcium, Ionized (arterial) 1.18 mmol/L (1.12-1.30); Carboxyhemoglobin (COHb) 0.5 gm% (0.0-3.0); Hemoglobin (Hb) 15.3 g/dL (14.0-18.0); Potassium - ABG Lab 4.31 mmol/L (3.70-5.30); pH, Arterial 7.34 (7.35-7.45)
[2020-04-21 16:33] LABS: O2 Tension (PaO2), arterial 55.2 mmHg (80.0-100.0)
[2020-04-21 16:34] LABS: Puncture Site RRA
[2020-04-21] MEDS: Colchicine 0.6 MG TAB PO SCH (19:50)
[2020-04-21] MEDS: Insulin Glargine 15 UNITS in Pre-Filled Syringe 1 EACH SC SCH (20:51)
[2020-04-21] MEDS: VANCOMYCIN 1.75 GM/350 ML BAG 1.75 GM in Premix Bag 1 BAG IVPB SCH (20:52)
[2020-04-22] MEDS: Propofol 1,000 MG/100 ML VIAL IV PRN ×6 (02:35→23:27)
[2020-04-22 04:00] LABS: #Basophils 0.1 thou/uL (0.0-0.2); #Eosinphils 0.1 thou/uL (0.0-0.7); #Lymphocytes 0.8 thou/uL (1.20-3.40); #Monocytes 0.7 thou/uL (0.11-0.59); #Neutrophils 14.7 thou/uL (1.40-6.50); %Basophils 0.4 % (0.0-1.0); %Eosinophils 0.3 % (0.0-10.0); %Neutrophils 90.3 % (42.0-75.0); Hemoglobin 13.1 g/dL (14.0-18.0); Mean Corpuscular HGB CONC 33.3 g/dL (32.0-36.0); Mean Corpuscular Hemoglobin 29.8 pg (27.0-31.0); Mean Corpuscular Volume 89.6 fL (78.0-98.0); Mean Platelet Volume 9.1 fL (7.4-10.4); Platelet Count 287 thou/uL (130-400); RBC Distribution Width 13.7 % (11.5-14.5); Red Blood Cell (RBC) Count 4.38 mill/uL (4.70-6.10); White Blood Cell (WBC) Count 16.3 thou/uL (4.8-10.8)
[2020-04-22 04:10] LABS: Anion Gap 10 mmol/L (10-20); BUN (Urea Nitrogen) 17 mg/dL (8.4-25.7); Calc. Creatinine Clearance 193 mL/min (70-130); Calcium 8.6 mg/dL (7.8-10.44); Carbon Dioxide 29 mmol/L (22-29); Chloride 101 mmol/L (98-107); Glucose 170 mg/dL (70-105); Potassium 4.4 mmol/L (3.5-5.1); Sodium 136 mmol/L (136-145)
[2020-04-22] MEDS: Rocuronium Bromide 50 MG/5 ML VIAL IVP PRN ×2 (04:35→13:47)
[2020-04-22] MEDS: Cefepime 2 GM in Sodium Chloride 0.9% 100 ML IVPB SCH ×3 (06:41→19:42)
[2020-04-22] MEDS ORDERED: Fentanyl CADD 100 ML ONE ×2 (08:07→23:04)
[2020-04-22] MEDS: Colchicine 0.6 MG TAB PO SCH ×2 (09:25→19:49)
[2020-04-22] MEDS: Pantoprazole 40 MG GRANULES PACKET PER TUBE SCH (09:25)
[2020-04-22] MEDS: Zinc Sulfate 220 MG CAP PO SCH (09:25)
[2020-04-22] MEDS: Fish Oil 1,000 MG CAP PO SCH ×2 (09:25→19:49)
[2020-04-22] MEDS: Enoxaparin Sodium 40 MG/0.4 ML SYRINGE SC SCH ×2 (09:25→19:49)
[2020-04-22] MEDS: Cholecalciferol (Vitamin D3) 400 UNITS TAB PO SCH (09:25)
[2020-04-22] MEDS: Ascorbic Acid 500 mg Chewable Tablet PO SCH ×2 (09:25→19:49)
[2020-04-22] MEDS: VANCOMYCIN 1.75 GM/350 ML BAG 1.75 GM in Premix Bag 1 BAG IVPB SCH ×2 (11:41→22:37)
[2020-04-22] MEDS: Dexamethasone 4 MG TAB PO SCH (13:44)
[2020-04-22] MEDS: Lorazepam 2 MG/ML VIAL SLOW IVP PRN ×3 (14:36→20:53)
[2020-04-22] MEDS: Rocuronium Bromide 10 MG/ML (10ML VIAL) IVP PRN ×2 (16:30→21:23)
[2020-04-22] MEDS: Dexamethasone 4 mg/ml Vial SLOW IVP SCH (19:50)
[2020-04-22] MEDS: Insulin Glargine 15 UNITS in Pre-Filled Syringe 1 EACH SC SCH (19:59)
[2020-04-22] MEDS ORDERED: Dexamethasone 10 MG/ML VIAL SLOW IVP SCH (21:00)
[2020-04-22 22:22] LABS: Vancomycin, Trough 14.1 ug/mL
[2020-04-22] MEDS: Fentanyl CADD 100 ML IV SCH (23:38)
[2020-04-23] MEDS: Lorazepam 2 MG/ML VIAL SLOW IVP PRN ×2 (01:05→18:06)
[2020-04-23] MEDS: Propofol 1,000 MG/100 ML VIAL IV PRN ×5 (02:21→19:35)
[2020-04-23] MEDS: Cefepime 2 GM in Sodium Chloride 0.9% 100 ML IVPB SCH ×3 (03:37→19:35)
[2020-04-23 05:20] LABS: Anion Gap 14 mmol/L (10-20); BUN (Urea Nitrogen) 19 mg/dL (8.4-25.7); Calc. Creatinine Clearance 193 mL/min (70-130); Calcium 8.3 mg/dL (7.8-10.44); Carbon Dioxide 25 mmol/L (22-29); Chloride 102 mmol/L (98-107); Glucose 163 mg/dL (70-105); Sodium 136 mmol/L (136-145)
[2020-04-23 05:52] LABS: Hemoglobin 12.6 g/dL (14.0-18.0); Mean Corpuscular HGB CONC 33.2 g/dL (32.0-36.0); Mean Corpuscular Hemoglobin 30.1 pg (27.0-31.0); Mean Corpuscular Volume 90.7 fL (78.0-98.0); Mean Platelet Volume 9.5 fL (7.4-10.4); Platelet Count 254 thou/uL (130-400); RBC Distribution Width 13.6 % (11.5-14.5); Red Blood Cell (RBC) Count 4.18 mill/uL (4.70-6.10)
[2020-04-23 05:56] LABS: Band 2 % (5-11); Lymphocytes 6 % (21-51); MDiff Complete? YES; Monocytes 1 % (0-10); Neutrophil 91 % (42-75)
[2020-04-23] MEDS: Fish Oil 1,000 MG CAP PO SCH ×2 (09:07→19:36)
[2020-04-23] MEDS: Pantoprazole 40 MG GRANULES PACKET PER TUBE SCH (09:07)
[2020-04-23] MEDS: Cholecalciferol (Vitamin D3) 400 UNITS TAB PO SCH (09:07)
[2020-04-23] MEDS: Enoxaparin Sodium 40 MG/0.4 ML SYRINGE SC SCH ×2 (09:07→19:36)
[2020-04-23] MEDS: Colchicine 0.6 MG TAB PO SCH ×2 (09:07→19:36)
[2020-04-23] MEDS: Zinc Sulfate 220 MG CAP PO SCH (09:07)
[2020-04-23] MEDS: Ascorbic Acid 500 mg Chewable Tablet PO SCH ×2 (09:07→19:35)
[2020-04-23] MEDS: Dexamethasone 4 mg/ml Vial SLOW IVP SCH ×2 (09:07→19:36)
[2020-04-23] MEDS: Rocuronium Bromide 10 MG/ML (10ML VIAL) IVP PRN ×3 (09:15→15:40)
[2020-04-23] MEDS: VANCOMYCIN 1.75 GM/350 ML BAG 1.75 GM in Premix Bag 1 BAG IVPB SCH ×2 (10:34→21:28)
[2020-04-23] MEDS ORDERED: Fentanyl CADD 100 ML ONE (13:10)
[2020-04-23] MEDS: Insulin Glargine 15 UNITS in Pre-Filled Syringe 1 EACH SC SCH (19:37)
[2020-04-23] MEDS: HumaLOG 300 UNITS/3 ML VIAL SC PRN ×2 (19:57→23:30)
[2020-04-23] MEDS: Senokot S 8.6-50 MG TAB PO PRN (20:03)
[2020-04-24] MEDS: Cefepime 2 GM in Sodium Chloride 0.9% 100 ML IVPB SCH ×3 (03:32→20:26)
[2020-04-24] MEDS: Rocuronium Bromide 10 MG/ML (10ML VIAL) IVP PRN ×2 (03:50→11:12)
[2020-04-24] MEDS ORDERED: Fentanyl CADD 100 ML ONE ×2 (03:56→18:14)
[2020-04-24] MEDS: Fentanyl CADD 100 ML IV SCH (03:57)
[2020-04-24 05:37] LABS: ALT (SGPT) 53 U/L (8-55); AST (SGOT) 27 U/L (5-34); Albumin 2.6 g/dL (3.5-5.0); Alkaline Phosphatase 83 U/L (40-110); Anion Gap 13 mmol/L (10-20); BUN (Urea Nitrogen) 22 mg/dL (8.4-25.7); Bilirubin, Total 0.4 mg/dL (0.2-1.2); CRP (Inflammatory) 8.51 mg/dL (= or < 0.5); Calc. Creatinine Clearance 203 mL/min (70-130); Calcium 8.7 mg/dL (7.8-10.44); Carbon Dioxide 24 mmol/L (22-29); Chloride 102 mmol/L (98-107); Globulin 3.9 g/dL (2.4-3.5); Glucose 226 mg/dL (70-105); Magnesium 2.4 mg/dL (1.6-2.6); Phosphorus 2.8 mg/dL (2.3-4.7); Potassium 4.4 mmol/L (3.5-5.1); Protein, Total 6.5 g/dL (6.0-8.3); Sodium 135 mmol/L (136-145)
[2020-04-24 05:49] LABS: #Eosinphils 0.1 thou/uL (0.0-0.7); #Lymphocytes 0.8 thou/uL (1.20-3.40); #Monocytes 0.5 thou/uL (0.11-0.59); #Neutrophils 10.1 thou/uL (1.40-6.50); %Basophils 0.2 % (0.0-1.0); %Eosinophils 0.9 % (0.0-10.0); %Lymphocytes 6.6 % (21.0-51.0); %Monocytes 4.3 % (0.0-10.0); Hemoglobin 12.6 g/dL (14.0-18.0); Mean Corpuscular HGB CONC 32.6 g/dL (32.0-36.0); Mean Corpuscular Hemoglobin 29.5 pg (27.0-31.0); Mean Corpuscular Volume 90.4 fL (78.0-98.0); Mean Platelet Volume 9.8 fL (7.4-10.4); Platelet Count 210 thou/uL (130-400); RBC Distribution Width 13.6 % (11.5-14.5); Red Blood Cell (RBC) Count 4.28 mill/uL (4.70-6.10); White Blood Cell (WBC) Count 11.5 thou/uL (4.8-10.8)
[2020-04-24] MEDS: HumaLOG 300 UNITS/3 ML VIAL SC PRN ×4 (05:52→21:06)
[2020-04-24] MEDS: Propofol 1,000 MG/100 ML VIAL IV PRN ×4 (07:08→23:21)
[2020-04-24 07:47] LABS: Actual Bicarbonate (HCO3a) 24.4 mEq/L (22-28); Base Excess (BEa) -0.9 mEq/L (-2.0 to +3.0); CO2 Tension 42.6 mmHg (35.0-45.0); Calcium, Ionized (arterial) 1.21 mmol/L (1.12-1.30); Carboxyhemoglobin (COHb) 0.6 gm% (0.0-3.0); Hemoglobin (Hb) 14.4 g/dL (14.0-18.0); pH, Arterial 7.38 (7.35-7.45)
[2020-04-24 08:10] LABS: O2 Tension (PaO2), arterial 55.1 mmHg (80.0-100.0); Puncture Site RBA
[2020-04-24] MEDS: Zinc Sulfate 220 MG CAP PO SCH (09:45)
[2020-04-24] MEDS: Enoxaparin Sodium 40 MG/0.4 ML SYRINGE SC SCH ×2 (09:45→20:30)
[2020-04-24] MEDS: Pantoprazole 40 MG GRANULES PACKET PER TUBE SCH (09:45)
[2020-04-24] MEDS: Fish Oil 1,000 MG CAP PO SCH (09:46)
[2020-04-24] MEDS: Cholecalciferol (Vitamin D3) 400 UNITS TAB PO SCH (09:46)
[2020-04-24] MEDS: Ascorbic Acid 500 mg Chewable Tablet PO SCH ×2 (09:46→20:30)
[2020-04-24] MEDS: Dexamethasone 4 mg/ml Vial SLOW IVP SCH (09:47)
[2020-04-24] MEDS: VANCOMYCIN 1.75 GM/350 ML BAG 1.75 GM in Premix Bag 1 BAG IVPB SCH ×2 (09:47→21:07)
[2020-04-24] MEDS: Colchicine 0.6 MG TAB PO SCH ×2 (13:56→20:30)
[2020-04-24] MEDS: Insulin Glargine 15 UNITS in Pre-Filled Syringe 1 EACH SC SCH (21:06)
[2020-04-24 22:33] LABS: Vancomycin, Trough 23.5 ug/mL
[2020-04-25] MEDS ORDERED: Ascorbic Acid 500 mg Chewable Tablet ONE (10:29)
[2020-04-25] MEDS ORDERED: VANCOMYCIN 1.75 GM/350 ML BAG ONE (10:29)
[2020-04-25] MEDS ORDERED: Cefepime 2 GM VIAL ONE (10:29)
[2020-04-25] MEDS: Cholecalciferol (Vitamin D3) 400 UNITS TAB PO SCH (14:06)
[2020-04-25] MEDS: Dexamethasone 4 MG TAB PO SCH (14:06)
[2020-04-25] MEDS: Cefepime 2 GM in Sodium Chloride 0.9% 100 ML IVPB SCH ×2 (14:06→20:35)
[2020-04-25] MEDS: Ascorbic Acid 500 mg Chewable Tablet PO SCH ×2 (14:06→20:37)
[2020-04-25] MEDS: Enoxaparin Sodium 40 MG/0.4 ML SYRINGE SC SCH ×2 (14:07→20:38)
[2020-04-25] MEDS: Colchicine 0.6 MG TAB PO SCH ×2 (14:07→20:37)
[2020-04-25] MEDS: Pantoprazole 40 MG GRANULES PACKET PER TUBE SCH (14:07)
[2020-04-25] MEDS: Furosemide 40 MG/4 ML VIAL SLOW IVP SCH (14:07)
[2020-04-25] MEDS: Zinc Sulfate 220 MG CAP PO SCH (14:08)
[2020-04-25] MEDS: Vancomycin 1.5 GRAM/300 ML BAG 1.5 GM in Premix Bag 1 BAG IVPB SCH ×2 (14:08→22:38)
[2020-04-25 14:57] LABS: #Basophils 0.1 thou/uL (0.0-0.2); #Eosinphils 0.1 thou/uL (0.0-0.7); #Lymphocytes 1.2 thou/uL (1.20-3.40); #Monocytes 0.8 thou/uL (0.11-0.59); #Neutrophils 9.8 thou/uL (1.40-6.50); %Basophils 0.6 % (0.0-1.0); %Eosinophils 0.7 % (0.0-10.0); %Lymphocytes 10.2 % (21.0-51.0); %Monocytes 6.3 % (0.0-10.0); %Neutrophils 82.1 % (42.0-75.0); Hemoglobin 13.2 g/dL (14.0-18.0); Mean Corpuscular HGB CONC 32.9 g/dL (32.0-36.0); Mean Corpuscular Hemoglobin 29.8 pg (27.0-31.0); Mean Corpuscular Volume 90.5 fL (78.0-98.0); Platelet Count 191 thou/uL (130-400); RBC Distribution Width 13.8 % (11.5-14.5); Red Blood Cell (RBC) Count 4.44 mill/uL (4.70-6.10); White Blood Cell (WBC) Count 11.9 thou/uL (4.8-10.8)
[2020-04-25] MEDS: HumaLOG 300 UNITS/3 ML VIAL SC PRN ×2 (16:11→21:04)
[2020-04-25 18:07] LABS: Anion Gap 11 mmol/L (10-20); BUN (Urea Nitrogen) 21 mg/dL (8.4-25.7); Calc. Creatinine Clearance 211 mL/min (70-130); Calcium 8.5 mg/dL (7.8-10.44); Carbon Dioxide 27 mmol/L (22-29); Chloride 102 mmol/L (98-107); Glucose 159 mg/dL (70-105); Potassium 3.8 mmol/L (3.5-5.1); Sodium 136 mmol/L (136-145)
[2020-04-25] MEDS: Propofol 1,000 MG/100 ML VIAL IV PRN ×2 (18:38→22:55)
[2020-04-25] MEDS: Insulin Glargine 15 UNITS in Pre-Filled Syringe 1 EACH SC SCH (20:38)
[2020-04-25] MEDS ORDERED: Fentanyl CADD 0 ML ONE ×2 (22:43→22:56)
[2020-04-26] MEDS: Cefepime 2 GM in Sodium Chloride 0.9% 100 ML IVPB SCH ×3 (03:10→20:32)
[2020-04-26] MEDS: Propofol 1,000 MG/100 ML VIAL IV PRN ×4 (03:41→20:34)
[2020-04-26] MEDS: HumaLOG 300 UNITS/3 ML VIAL SC PRN ×3 (03:46→20:38)
[2020-04-26] MEDS: Furosemide 40 MG/4 ML VIAL SLOW IVP SCH (07:22)
[2020-04-26] MEDS: Cholecalciferol (Vitamin D3) 400 UNITS TAB PO SCH (07:22)
[2020-04-26] MEDS: Enoxaparin Sodium 40 MG/0.4 ML SYRINGE SC SCH ×2 (07:22→20:33)
[2020-04-26] MEDS: Ascorbic Acid 500 mg Chewable Tablet PO SCH ×2 (07:22→20:33)
[2020-04-26] MEDS: Pantoprazole 40 MG GRANULES PACKET PER TUBE SCH (07:22)
[2020-04-26] MEDS: Zinc Sulfate 220 MG CAP PO SCH (07:23)
[2020-04-26] MEDS: Colchicine 0.6 MG TAB PO SCH ×2 (07:23→20:33)
[2020-04-26] MEDS: Dexamethasone 4 MG TAB PO SCH (07:23)
[2020-04-26 08:13] LABS: Anion Gap 14 mmol/L (10-20); BUN (Urea Nitrogen) 28 mg/dL (8.4-25.7); Calc. Creatinine Clearance 220 mL/min (70-130); Calcium 8.4 mg/dL (7.8-10.44); Carbon Dioxide 21 mmol/L (22-29); Chloride 105 mmol/L (98-107); Glucose 135 mg/dL (70-105); Potassium 4.3 mmol/L (3.5-5.1); Sodium 136 mmol/L (136-145)
[2020-04-26 08:24] LABS: #Eosinphils 0.2 thou/uL (0.0-0.7); #Lymphocytes 1.2 thou/uL (1.20-3.40); #Monocytes 0.7 thou/uL (0.11-0.59); #Neutrophils 8.2 thou/uL (1.40-6.50); %Eosinophils 1.6 % (0.0-10.0); %Lymphocytes 11.4 % (21.0-51.0); %Monocytes 7.2 % (0.0-10.0); %Neutrophils 79.7 % (42.0-75.0); Mean Corpuscular HGB CONC 34.7 g/dL (32.0-36.0); Mean Corpuscular Hemoglobin 31.5 pg (27.0-31.0); Mean Corpuscular Volume 90.8 fL (78.0-98.0); Mean Platelet Volume 8.4 fL (7.4-10.4); Platelet Count 205 thou/uL (130-400); RBC Distribution Width 13.9 % (11.5-14.5); Red Blood Cell (RBC) Count 4.12 mill/uL (4.70-6.10); White Blood Cell (WBC) Count 10.3 thou/uL (4.8-10.8)
[2020-04-26 10:31] LABS: Vancomycin, Trough 14.1 ug/mL
[2020-04-26] MEDS: Vancomycin 1.5 GRAM/300 ML BAG 1.5 GM in Premix Bag 1 BAG IVPB SCH (10:47)
[2020-04-26] MEDS: VANCOMYCIN 1.75 GM/350 ML BAG 1.75 GM in Premix Bag 1 BAG IVPB SCH ×2 (13:07→22:33)
[2020-04-26] MEDS: Fentanyl CADD 100 ML IV SCH (13:40)
[2020-04-26] MEDS: Lorazepam 2 MG/ML VIAL SLOW IVP PRN ×2 (14:01→20:34)
[2020-04-26] MEDS: Insulin Glargine 15 UNITS in Pre-Filled Syringe 1 EACH SC SCH (20:34)
[2020-04-27] MEDS: Lorazepam 2 MG/ML VIAL SLOW IVP PRN ×5 (01:06→23:13)
[2020-04-27] MEDS ORDERED: Fentanyl CADD 100 ML ONE ×2 (03:36→16:51)
[2020-04-27] MEDS: Propofol 1,000 MG/100 ML VIAL IV PRN ×6 (03:52→21:58)
[2020-04-27] MEDS: Cefepime 2 GM in Sodium Chloride 0.9% 100 ML IVPB SCH ×3 (03:53→20:18)
[2020-04-27] MEDS: HumaLOG 300 UNITS/3 ML VIAL SC PRN ×3 (03:53→21:09)
[2020-04-27] MEDS: Fentanyl CADD 100 ML IV SCH (03:55)
[2020-04-27 04:29] LABS: Phosphorus 3.4 mg/dL (2.3-4.7)
[2020-04-27 04:31] LABS: Anion Gap 11 mmol/L (10-20); BUN (Urea Nitrogen) 24 mg/dL (8.4-25.7); Calc. Creatinine Clearance 224 mL/min (70-130); Calcium 8.5 mg/dL (7.8-10.44); Carbon Dioxide 27 mmol/L (22-29); Chloride 104 mmol/L (98-107); Glucose 181 mg/dL (70-105); Magnesium 2.2 mg/dL (1.6-2.6); Potassium 3.9 mmol/L (3.5-5.1); Sodium 138 mmol/L (136-145)
[2020-04-27] MEDS: Dexamethasone 4 MG TAB PO SCH (07:54)
[2020-04-27] MEDS: Enoxaparin Sodium 40 MG/0.4 ML SYRINGE SC SCH ×2 (08:53→21:11)
[2020-04-27] MEDS: Zinc Sulfate 220 MG CAP PO SCH (08:53)
[2020-04-27] MEDS: Colchicine 0.6 MG TAB PO SCH ×2 (08:53→21:11)
[2020-04-27] MEDS: Ascorbic Acid 500 mg Chewable Tablet PO SCH ×2 (08:53→21:11)
[2020-04-27] MEDS: Cholecalciferol (Vitamin D3) 400 UNITS TAB PO SCH (08:53)
[2020-04-27] MEDS: Furosemide 40 MG/4 ML VIAL SLOW IVP SCH (08:54)
[2020-04-27] MEDS: Pantoprazole 40 MG GRANULES PACKET PER TUBE SCH (08:54)
[2020-04-27] MEDS ORDERED: Furosemide 100 MG/10 ML VIAL SLOW IVP SCH (09:30)
[2020-04-27] MEDS: VANCOMYCIN 1.75 GM/350 ML BAG 1.75 GM in Premix Bag 1 BAG IVPB SCH ×2 (10:33→23:13)
[2020-04-27] MEDS: Insulin Glargine 15 UNITS in Pre-Filled Syringe 1 EACH SC SCH (21:11)
[2020-04-27 23:13] LABS: Vancomycin, Trough 14.5 ug/mL
[2020-04-27] MEDS: Rocuronium Bromide 10 MG/ML (10ML VIAL) IVP PRN (23:31)
[2020-04-28] MEDS: Propofol 1,000 MG/100 ML VIAL IV PRN ×6 (02:06→22:21)
[2020-04-28] MEDS ORDERED: Fentanyl CADD 100 ML ONE ×2 (03:33→14:45)
[2020-04-28] MEDS: Cefepime 2 GM in Sodium Chloride 0.9% 100 ML IVPB SCH (04:29)
[2020-04-28] MEDS: HumaLOG 300 UNITS/3 ML VIAL SC PRN ×3 (04:56→16:44)
[2020-04-28 07:20] LABS: Anion Gap 12 mmol/L (10-20); BUN (Urea Nitrogen) 28 mg/dL (8.4-25.7); Calc. Creatinine Clearance 211 mL/min (70-130); Calcium 8.8 mg/dL (7.8-10.44); Carbon Dioxide 31 mmol/L (22-29); Chloride 102 mmol/L (98-107); Glucose 203 mg/dL (70-105); Potassium 4.3 mmol/L (3.5-5.1); Sodium 141 mmol/L (136-145)
[2020-04-28] MEDS: Ascorbic Acid 500 mg Chewable Tablet PO SCH ×2 (08:34→20:54)
[2020-04-28] MEDS: Pantoprazole 40 MG GRANULES PACKET PER TUBE SCH (08:34)
[2020-04-28] MEDS: Colchicine 0.6 MG TAB PO SCH ×2 (08:34→20:54)
[2020-04-28] MEDS: Dexamethasone 4 MG TAB PO SCH (08:34)
[2020-04-28] MEDS: Cholecalciferol (Vitamin D3) 400 UNITS TAB PO SCH (08:34)
[2020-04-28] MEDS: Enoxaparin Sodium 40 MG/0.4 ML SYRINGE SC SCH ×2 (08:35→20:54)
[2020-04-28] MEDS: Furosemide 100 MG/10 ML VIAL SLOW IVP SCH (08:35)
[2020-04-28] MEDS: Zinc Sulfate 220 MG CAP PO SCH (08:35)
[2020-04-28] MEDS: VANCOMYCIN 1.75 GM/350 ML BAG 1.75 GM in Premix Bag 1 BAG IVPB SCH (10:13)
[2020-04-28] MEDS: Acetaminophen 325 MG TAB PO PRN (11:21)
[2020-04-28] MEDS: Lorazepam 2 MG/ML VIAL SLOW IVP PRN (19:32)
[2020-04-28] MEDS: Insulin Glargine 15 UNITS in Pre-Filled Syringe 1 EACH SC SCH (20:54)
[2020-04-29] MEDS ORDERED: Fentanyl CADD 100 ML ONE ×2 (01:23→11:28)
[2020-04-29] MEDS: Rocuronium Bromide 10 MG/ML (10ML VIAL) IVP PRN ×4 (02:53→10:40)
[2020-04-29] MEDS: Propofol 1,000 MG/100 ML VIAL IV PRN ×4 (03:35→15:07)
[2020-04-29 04:24] LABS: Anion Gap 11 mmol/L (10-20); BUN (Urea Nitrogen) 34 mg/dL (8.4-25.7); Calc. Creatinine Clearance 224 mL/min (70-130); Calcium 8.8 mg/dL (7.8-10.44); Carbon Dioxide 34 mmol/L (22-29); Chloride 99 mmol/L (98-107); Glucose 193 mg/dL (70-105); Potassium 3.7 mmol/L (3.5-5.1); Sodium 140 mmol/L (136-145)
[2020-04-29] MEDS ORDERED: Vecuronium 10 MG VIAL ONE (08:29)
[2020-04-29] MEDS: Furosemide 100 MG/10 ML VIAL SLOW IVP SCH (09:02)
[2020-04-29] MEDS: Dexamethasone 4 MG TAB PO SCH (09:03)
[2020-04-29] MEDS: Cholecalciferol (Vitamin D3) 400 UNITS TAB PO SCH (09:03)
[2020-04-29] MEDS: Zinc Sulfate 220 MG CAP PO SCH (09:03)
[2020-04-29] MEDS: Enoxaparin Sodium 40 MG/0.4 ML SYRINGE SC SCH (09:03)
[2020-04-29] MEDS: Pantoprazole 40 MG GRANULES PACKET PER TUBE SCH (09:03)
[2020-04-29] MEDS: Colchicine 0.6 MG TAB PO SCH ×2 (09:03→21:35)
[2020-04-29] MEDS: Ascorbic Acid 500 mg Chewable Tablet PO SCH ×2 (09:03→21:35)
[2020-04-29] MEDS: HumaLOG 300 UNITS/3 ML VIAL SC PRN ×3 (10:01→21:37)
[2020-04-29] MEDS: Lorazepam 2 MG/ML VIAL SLOW IVP PRN ×4 (10:03→20:17)
[2020-04-29] MEDS: Morphine 2 MG/ML VIAL SLOW IVP PRN ×2 (11:09→14:09)
[2020-04-29] MEDS: Fentanyl CADD 100 ML IV SCH (11:29)
[2020-04-29] MEDS: Enoxaparin Sodium 60 MG/0.6 ML SYRINGE SC SCH (21:35)
[2020-04-29] MEDS: Insulin Glargine 15 UNITS in Pre-Filled Syringe 1 EACH SC SCH (21:35)
[2020-04-30] MEDS: Lorazepam 2 MG/ML VIAL SLOW IVP PRN ×3 (00:02→03:50)
[2020-04-30 04:56] LABS: #Eosinphils 0.1 thou/uL (0.0-0.7); #Lymphocytes 1.1 thou/uL (1.20-3.40); #Monocytes 0.6 thou/uL (0.11-0.59); #Neutrophils 5.6 thou/uL (1.40-6.50); %Basophils 0.1 % (0.0-1.0); %Lymphocytes 15.1 % (21.0-51.0); %Monocytes 7.5 % (0.0-10.0); %Neutrophils 76.3 % (42.0-75.0); Hemoglobin 11.6 g/dL (14.0-18.0); Mean Corpuscular HGB CONC 32.2 g/dL (32.0-36.0); Mean Corpuscular Hemoglobin 29.7 pg (27.0-31.0); Mean Corpuscular Volume 92.4 fL (78.0-98.0); Mean Platelet Volume 9.7 fL (7.4-10.4); Platelet Count 144 thou/uL (130-400); RBC Distribution Width 13.9 % (11.5-14.5); White Blood Cell (WBC) Count 7.4 thou/uL (4.8-10.8)
[2020-04-30 05:14] LABS: BUN (Urea Nitrogen) 33 mg/dL (8.4-25.7); Calc. Creatinine Clearance 213 mL/min (70-130); Calcium 8.8 mg/dL (7.8-10.44); Glucose 186 mg/dL (70-105)
[2020-04-30 05:23] LABS: Anion Gap 14 mmol/L (10-20); Carbon Dioxide 34 mmol/L (22-29); Chloride 100 mmol/L (98-107); Sodium 144 mmol/L (136-145)
[2020-04-30] MEDS ORDERED: Fentanyl CADD 100 ML ONE (08:40)
[2020-04-30] MEDS: Zinc Sulfate 220 MG CAP PO SCH (08:42)
[2020-04-30] MEDS: Furosemide 100 MG/10 ML VIAL SLOW IVP SCH (08:42)
[2020-04-30] MEDS: Cholecalciferol (Vitamin D3) 400 UNITS TAB PO SCH (08:42)
[2020-04-30] MEDS: Ascorbic Acid 500 mg Chewable Tablet PO SCH ×2 (08:42→21:05)
[2020-04-30] MEDS: Dexamethasone 4 MG TAB PO SCH (08:42)
[2020-04-30] MEDS: Enoxaparin Sodium 60 MG/0.6 ML SYRINGE SC SCH ×2 (08:42→21:06)
[2020-04-30] MEDS: Pantoprazole 40 MG GRANULES PACKET PER TUBE SCH (08:42)
[2020-04-30] MEDS: Fentanyl CADD 100 ML IV SCH (08:43)
[2020-04-30] MEDS: Colchicine 0.6 MG TAB PO SCH ×2 (10:10→21:05)
[2020-04-30] MEDS: HumaLOG 300 UNITS/3 ML VIAL SC PRN ×2 (10:48→16:08)
[2020-04-30] MEDS: Insulin Glargine 15 UNITS in Pre-Filled Syringe 1 EACH SC SCH (21:06)
[2020-05-01 03:48] LABS: #Monocytes 0.4 thou/uL (0.11-0.59); #Neutrophils 4.3 thou/uL (1.40-6.50); %Basophils 0.7 % (0.0-1.0); %Eosinophils 0.4 % (0.0-10.0); %Lymphocytes 17.3 % (21.0-51.0); %Monocytes 6.6 % (0.0-10.0); %Neutrophils 75.1 % (42.0-75.0); Hemoglobin 11.7 g/dL (14.0-18.0); Mean Corpuscular HGB CONC 32.1 g/dL (32.0-36.0); Mean Corpuscular Hemoglobin 29.4 pg (27.0-31.0); Mean Corpuscular Volume 91.8 fL (78.0-98.0); Platelet Count 122 thou/uL (130-400); Red Blood Cell (RBC) Count 3.99 mill/uL (4.70-6.10); White Blood Cell (WBC) Count 5.7 thou/uL (4.8-10.8)
[2020-05-01 04:10] LABS: BUN (Urea Nitrogen) 40 mg/dL (8.4-25.7); Calc. Creatinine Clearance 214 mL/min (70-130); Glucose 212 mg/dL (70-105)
[2020-05-01 04:19] LABS: Anion Gap 17 mmol/L (10-20); Carbon Dioxide 34 mmol/L (22-29); Chloride 98 mmol/L (98-107); Potassium 3.5 mmol/L (3.5-5.1); Sodium 145 mmol/L (136-145)
[2020-05-01] MEDS: HumaLOG 300 UNITS/3 ML VIAL SC PRN (05:03)
[2020-05-01] MEDS: Enoxaparin Sodium 60 MG/0.6 ML SYRINGE SC SCH ×2 (08:28→21:51)
[2020-05-01] MEDS: Cholecalciferol (Vitamin D3) 400 UNITS TAB PO SCH (08:28)
[2020-05-01] MEDS: Colchicine 0.6 MG TAB PO SCH ×2 (08:28→21:51)
[2020-05-01] MEDS: Pantoprazole 40 MG GRANULES PACKET PER TUBE SCH (08:28)
[2020-05-01] MEDS: Ascorbic Acid 500 mg Chewable Tablet PO SCH ×2 (08:28→21:51)
[2020-05-01] MEDS: Zinc Sulfate 220 MG CAP PO SCH (08:28)
[2020-05-01] MEDS: Furosemide 40 MG/4 ML VIAL SLOW IVP SCH (08:28)
[2020-05-01] MEDS ORDERED: Fentanyl CADD 100 ML ONE (16:28)
[2020-05-01] MEDS: Insulin Glargine 15 UNITS in Pre-Filled Syringe 1 EACH SC SCH (21:51)
[2020-05-02] MEDS: HumaLOG 300 UNITS/3 ML VIAL SC PRN ×4 (03:48→20:06)
[2020-05-02 08:10] LABS: Actual Bicarbonate (HCO3a) 39.2 mEq/L (22-28); Base Excess (BEa) 12.7 mEq/L (-2.0 to +3.0); CO2 Tension 56.6 mmHg (35.0-45.0); Calcium, Ionized (arterial) 1.21 mmol/L (1.12-1.30); Carboxyhemoglobin (COHb) 1.4 gm% (0.0-3.0); Potassium - ABG Lab 3.44 mmol/L (3.70-5.30); pH, Arterial 7.46 (7.35-7.45)
[2020-05-02] MEDS ORDERED: Acetaminophen 500 MG TAB ONE (08:18)
[2020-05-02 08:19] LABS: O2 Tension (PaO2), arterial 55.2 mmHg (80.0-100.0); Puncture Site RRA
[2020-05-02 08:30] LABS: #Eosinphils 0.8 thou/uL (0.0-0.7); #Lymphocytes 1.5 thou/uL (1.20-3.40); #Monocytes 0.5 thou/uL (0.11-0.59); #Neutrophils 4.6 thou/uL (1.40-6.50); %Basophils 0.6 % (0.0-1.0); %Eosinophils 10.8 % (0.0-10.0); %Lymphocytes 19.9 % (21.0-51.0); %Monocytes 6.5 % (0.0-10.0); %Neutrophils 62.2 % (42.0-75.0); Hemoglobin 12.2 g/dL (14.0-18.0); Mean Corpuscular HGB CONC 33.4 g/dL (32.0-36.0); Mean Corpuscular Hemoglobin 30.3 pg (27.0-31.0); Mean Corpuscular Volume 90.7 fL (78.0-98.0); Mean Platelet Volume 8.8 fL (7.4-10.4); Platelet Count 131 thou/uL (130-400); RBC Distribution Width 14.3 % (11.5-14.5); Red Blood Cell (RBC) Count 4.03 mill/uL (4.70-6.10); White Blood Cell (WBC) Count 7.5 thou/uL (4.8-10.8)
[2020-05-02] MEDS ORDERED: Acetaminophen 500 MG TAB PO SCH (08:30)
[2020-05-02] MEDS: Dexamethasone 1 MG TAB PO SCH (08:39)
[2020-05-02] MEDS: Enoxaparin Sodium 60 MG/0.6 ML SYRINGE SC SCH ×2 (08:39→20:02)
[2020-05-02] MEDS: Cholecalciferol (Vitamin D3) 400 UNITS TAB PO SCH (08:39)
[2020-05-02] MEDS: Zinc Sulfate 220 MG CAP PO SCH (08:39)
[2020-05-02] MEDS: Furosemide 40 MG/4 ML VIAL SLOW IVP SCH (08:39)
[2020-05-02] MEDS: Ascorbic Acid 500 mg Chewable Tablet PO SCH ×2 (08:40→20:02)
[2020-05-02] MEDS: Colchicine 0.6 MG TAB PO SCH ×2 (08:40→20:02)
[2020-05-02] MEDS: Pantoprazole 40 MG GRANULES PACKET PER TUBE SCH (08:40)
[2020-05-02] MEDS: Rocuronium Bromide 10 MG/ML (10ML VIAL) IVP PRN (08:57)
[2020-05-02 09:05] LABS: BUN (Urea Nitrogen) 37 mg/dL (8.4-25.7); Calc. Creatinine Clearance 202 mL/min (70-130); Glucose 197 mg/dL (70-105)
[2020-05-02 09:14] LABS: Anion Gap 20 mmol/L (10-20); Carbon Dioxide 30 mmol/L (22-29); Chloride 98 mmol/L (98-107); Potassium 3.5 mmol/L (3.5-5.1); Sodium 144 mmol/L (136-145)
[2020-05-02] MEDS ORDERED: PHARMACY TO DOSE VANCOMYCIN IVPB PRN (10:31)
[2020-05-02] MEDS ORDERED: Vancomycin 1.5 GRAM/300 ML BAG 1.5 GM in Premix Bag 1 BAG IVPB SCH (11:00)
[2020-05-02] MEDS: MEROPENEM 1 GM/50 ML 1 GM in Premix Bag 1 BAG IVPB SCH ×2 (11:00→17:51)
[2020-05-02] MEDS: VANCOMYCIN 1.75 GM/350 ML BAG 1.75 GM in Premix Bag 1 BAG IVPB SCH ×2 (11:01→22:08)
[2020-05-02] MEDS: Acetaminophen 325 MG TAB PO PRN (20:02)
[2020-05-02] MEDS: Insulin Glargine 15 UNITS in Pre-Filled Syringe 1 EACH SC SCH (20:21)
[2020-05-03] MEDS ORDERED: Fentanyl CADD 100 ML ONE (01:42)
[2020-05-03] MEDS: MEROPENEM 1 GM/50 ML 1 GM in Premix Bag 1 BAG IVPB SCH (03:44)
[2020-05-03] MEDS: Meropenem 1 GM in Sodium Chloride 0.9% 100 ML IVPB SCH ×3 (03:50→20:13)
[2020-05-03 04:58] LABS: #Basophils 0.1 thou/uL (0.0-0.2); #Eosinphils 0.1 thou/uL (0.0-0.7); #Lymphocytes 1.1 thou/uL (1.20-3.40); #Monocytes 0.4 thou/uL (0.11-0.59); #Neutrophils 4.6 thou/uL (1.40-6.50); %Eosinophils 1.4 % (0.0-10.0); %Lymphocytes 17.4 % (21.0-51.0); %Neutrophils 74.2 % (42.0-75.0); Hemoglobin 11.7 g/dL (14.0-18.0); Mean Corpuscular HGB CONC 32.9 g/dL (32.0-36.0); Mean Corpuscular Hemoglobin 30.1 pg (27.0-31.0); Mean Corpuscular Volume 91.4 fL (78.0-98.0); Mean Platelet Volume 9.6 fL (7.4-10.4); Platelet Count 127 thou/uL (130-400); RBC Distribution Width 14.1 % (11.5-14.5); Red Blood Cell (RBC) Count 3.89 mill/uL (4.70-6.10); White Blood Cell (WBC) Count 6.2 thou/uL (4.8-10.8)
[2020-05-03] MEDS: HumaLOG 300 UNITS/3 ML VIAL SC PRN ×4 (05:22→21:02)
[2020-05-03 05:36] LABS: BUN (Urea Nitrogen) 35 mg/dL (8.4-25.7); Calc. Creatinine Clearance 207 mL/min (70-130); Calcium 8.8 mg/dL (7.8-10.44); Glucose 199 mg/dL (70-105)
[2020-05-03 05:45] LABS: Anion Gap 16 mmol/L (10-20); Carbon Dioxide 34 mmol/L (22-29); Chloride 101 mmol/L (98-107); Potassium 3.3 mmol/L (3.5-5.1); Sodium 148 mmol/L (136-145)
[2020-05-03 07:35] LABS: Actual Bicarbonate (HCO3a) 36.4 mEq/L (22-28); Base Excess (BEa) 11.4 mEq/L (-2.0 to +3.0); CO2 Tension 49.8 mmHg (35.0-45.0); Calcium, Ionized (arterial) 1.06 mmol/L (1.12-1.30); Carboxyhemoglobin (COHb) 1.8 gm% (0.0-3.0); Hemoglobin (Hb) 11.6 g/dL (14.0-18.0); O2 Tension (PaO2), arterial 53.7 mmHg (80.0-100.0); Potassium - ABG Lab 3.37 mmol/L (3.70-5.30); Puncture Site LRA; pH, Arterial 7.48 (7.35-7.45)
[2020-05-03] MEDS ORDERED: Bisacodyl 10 MG SUPP PR PRN (08:14)
[2020-05-03] MEDS ORDERED: Bisacodyl 10 MG SUPP PR SCH (08:15)
[2020-05-03] MEDS ORDERED: Polyethylene Glycol 3350 17 GM Packet PO SCH (08:15)
[2020-05-03] MEDS ORDERED: Insulin Glargine 15 UNITS in Pre-Filled Syringe 1 EACH SC SCH (09:00)
[2020-05-03] MEDS: Enoxaparin Sodium 60 MG/0.6 ML SYRINGE SC SCH ×2 (09:07→21:04)
[2020-05-03] MEDS: Zinc Sulfate 220 MG CAP PO SCH (09:08)
[2020-05-03] MEDS: Dexamethasone 1 MG TAB PO SCH (09:08)
[2020-05-03] MEDS: Pantoprazole 40 MG GRANULES PACKET PER TUBE SCH (09:08)
[2020-05-03] MEDS: Colchicine 0.6 MG TAB PO SCH ×2 (09:08→21:04)
[2020-05-03] MEDS: Ascorbic Acid 500 mg Chewable Tablet PO SCH ×2 (09:08→21:04)
[2020-05-03] MEDS: Cholecalciferol (Vitamin D3) 400 UNITS TAB PO SCH (09:08)
[2020-05-03] MEDS: Furosemide 40 MG TAB PO SCH (09:09)
[2020-05-03] MEDS ORDERED: CEFAZOLIN 2 GM in Premix Bag 1 BAG IVPB SCH (09:30)
[2020-05-03] MEDS: Propofol 1,000 MG/100 ML VIAL IV PRN ×3 (10:32→23:15)
[2020-05-03] MEDS ORDERED: Propofol BOLUS 1,000 MG/100 ML VIAL IV PRN (11:00)
[2020-05-03] MEDS: VANCOMYCIN 1.75 GM/350 ML BAG 1.75 GM in Premix Bag 1 BAG IVPB SCH ×2 (11:52→23:11)
[2020-05-03] MEDS: Lorazepam 2 MG/ML VIAL SLOW IVP PRN ×2 (16:00→16:47)
[2020-05-03] MEDS: Rocuronium Bromide 10 MG/ML (10ML VIAL) IVP PRN (16:48)
[2020-05-03] MEDS: Insulin Glargine 15 UNITS in Pre-Filled Syringe 1 EACH SC SCH (21:02)
[2020-05-03 22:20] LABS: Vancomycin, Trough 12.8 ug/mL
[2020-05-04] MEDS ORDERED: Fentanyl CADD 100 ML ONE ×2 (00:07→19:46)
[2020-05-04] MEDS: Polyethylene Glycol 3350 17 GM Packet PO PRN (03:50)
[2020-05-04] MEDS: Meropenem 1 GM in Sodium Chloride 0.9% 100 ML IVPB SCH (04:06)
[2020-05-04 04:59] LABS: #Eosinphils 0.2 thou/uL (0.0-0.7); #Lymphocytes 1.1 thou/uL (1.20-3.40); #Monocytes 0.4 thou/uL (0.11-0.59); #Neutrophils 3.8 thou/uL (1.40-6.50); %Basophils 0.7 % (0.0-1.0); %Eosinophils 4.4 % (0.0-10.0); %Lymphocytes 19.7 % (21.0-51.0); %Monocytes 6.5 % (0.0-10.0); %Neutrophils 68.7 % (42.0-75.0); Anion Gap 8 mmol/L (10-20); BUN (Urea Nitrogen) 36 mg/dL (8.4-25.7); Calc. Creatinine Clearance 231 mL/min (70-130); Calcium 8.8 mg/dL (7.8-10.44); Carbon Dioxide 37 mmol/L (22-29); Chloride 101 mmol/L (98-107); Glucose 216 mg/dL (70-105); Hemoglobin 11.1 g/dL (14.0-18.0); Mean Corpuscular HGB CONC 32.7 g/dL (32.0-36.0); Mean Corpuscular Volume 91.7 fL (78.0-98.0); Mean Platelet Volume 10.3 fL (7.4-10.4); Platelet Count 127 thou/uL (130-400); Potassium 3.4 mmol/L (3.5-5.1); RBC Distribution Width 14.3 % (11.5-14.5); Red Blood Cell (RBC) Count 3.71 mill/uL (4.70-6.10); Sodium 143 mmol/L (136-145); White Blood Cell (WBC) Count 5.5 thou/uL (4.8-10.8)
[2020-05-04] MEDS: Rocuronium Bromide 10 MG/ML (10ML VIAL) IVP PRN ×2 (05:07→15:25)
[2020-05-04] MEDS: Lorazepam 2 MG/ML VIAL SLOW IVP PRN ×3 (05:07→17:35)
[2020-05-04 07:30] LABS: Actual Bicarbonate (HCO3a) 32.2 mEq/L (22-28); Base Excess (BEa) 7.5 mEq/L (-2.0 to +3.0); CO2 Tension 45.5 mmHg (35.0-45.0); Calcium, Ionized (arterial) 1.23 mmol/L (1.12-1.30); Hemoglobin (Hb) 13.5 g/dL (14.0-18.0); O2 Tension (PaO2), arterial 64.3 mmHg (80.0-100.0); Potassium - ABG Lab 3.34 mmol/L (3.70-5.30); pH, Arterial 7.47 (7.35-7.45)
[2020-05-04 07:48] LABS: ALV-art Gradient 164.025 mmHg (0-20); Puncture Site RRA
[2020-05-04] MEDS ORDERED: Fleet Enema 133 ML BOT FS PRN (07:56)
[2020-05-04] MEDS: Insulin Glargine 20 UNITS in Pre-Filled Syringe 1 EACH SC SCH ×2 (08:47→21:04)
[2020-05-04] MEDS: Dexamethasone 1 MG TAB PO SCH (08:48)
[2020-05-04] MEDS: Cholecalciferol (Vitamin D3) 400 UNITS TAB PO SCH (08:48)
[2020-05-04] MEDS: Ascorbic Acid 500 mg Chewable Tablet PO SCH ×2 (08:49→21:03)
[2020-05-04] MEDS: Pantoprazole 40 MG GRANULES PACKET PER TUBE SCH (08:49)
[2020-05-04] MEDS: Colchicine 0.6 MG TAB PO SCH ×2 (08:49→21:03)
[2020-05-04] MEDS: Enoxaparin Sodium 60 MG/0.6 ML SYRINGE SC SCH ×2 (08:49→21:04)
[2020-05-04] MEDS: Furosemide 40 MG TAB PO SCH (08:49)
[2020-05-04] MEDS: Zinc Sulfate 220 MG CAP PO SCH (08:49)
[2020-05-04] MEDS: Propofol 1,000 MG/100 ML VIAL IV PRN ×3 (09:06→23:13)
[2020-05-04] MEDS ORDERED: Ondansetron PF 4 MG/2 ML Vial ONE (09:49)
[2020-05-04] MEDS ORDERED: Rocuronium Bromide 10 MG/ML (10ML VIAL) ONE (09:49)
[2020-05-04] MEDS: VANCOMYCIN 1.75 GM/350 ML BAG 1.75 GM in Premix Bag 1 BAG IVPB SCH ×2 (10:49→23:08)
[2020-05-04] MEDS: HumaLOG 300 UNITS/3 ML VIAL SC PRN (10:50)
[2020-05-04] MEDS ORDERED: Lidocaine 1% w/Epinephrine 1:100K 20 ML VIAL ONE (17:25)
[2020-05-04] MEDS ORDERED: Bupivacaine PF 0.5% 30 ML VIAL ONE (17:25)
[2020-05-04] MEDS ORDERED: Fentanyl 100 MCG/2 ML VIAL ONE (17:35)
[2020-05-04] MEDS ORDERED: Midazolam HCl 2 mg/2 ml Vial ONE (17:35)
[2020-05-05] MEDS: Lorazepam 2 MG/ML VIAL SLOW IVP PRN ×2 (00:51→10:41)
[2020-05-05 04:44] LABS: #Eosinphils 0.5 thou/uL (0.0-0.7); #Lymphocytes 1.5 thou/uL (1.20-3.40); #Monocytes 0.4 thou/uL (0.11-0.59); #Neutrophils 4.5 thou/uL (1.40-6.50); %Basophils 0.1 % (0.0-1.0); %Eosinophils 6.9 % (0.0-10.0); %Lymphocytes 22.1 % (21.0-51.0); %Monocytes 5.8 % (0.0-10.0); %Neutrophils 65.1 % (42.0-75.0); Hemoglobin 11.9 g/dL (14.0-18.0); Mean Corpuscular HGB CONC 33.7 g/dL (32.0-36.0); Mean Corpuscular Hemoglobin 31.3 pg (27.0-31.0); Mean Corpuscular Volume 92.7 fL (78.0-98.0); Mean Platelet Volume 10.3 fL (7.4-10.4); Platelet Count 137 thou/uL (130-400); RBC Distribution Width 14.4 % (11.5-14.5); Red Blood Cell (RBC) Count 3.79 mill/uL (4.70-6.10); White Blood Cell (WBC) Count 6.9 thou/uL (4.8-10.8)
[2020-05-05 05:10] LABS: Anion Gap 9 mmol/L (10-20); BUN (Urea Nitrogen) 31 mg/dL (8.4-25.7); Calc. Creatinine Clearance 0 mL/min (70-130); Calcium 8.6 mg/dL (7.8-10.44); Carbon Dioxide 35 mmol/L (22-29); Chloride 102 mmol/L (98-107); Glucose 104 mg/dL (70-105); Potassium 3.2 mmol/L (3.5-5.1); Sodium 143 mmol/L (136-145)
[2020-05-05] MEDS: Propofol 1,000 MG/100 ML VIAL IV PRN ×4 (06:26→23:09)
[2020-05-05] MEDS: Enoxaparin Sodium 60 MG/0.6 ML SYRINGE SC SCH ×2 (08:59→21:26)
[2020-05-05] MEDS: Dexamethasone 1 MG TAB PO SCH (09:00)
[2020-05-05] MEDS: Insulin Glargine 20 UNITS in Pre-Filled Syringe 1 EACH SC SCH ×2 (09:01→22:22)
[2020-05-05] MEDS: Cholecalciferol (Vitamin D3) 400 UNITS TAB PO SCH (09:03)
[2020-05-05] MEDS: Zinc Sulfate 220 MG CAP PO SCH (09:03)
[2020-05-05] MEDS: Furosemide 40 MG TAB PO SCH (09:03)
[2020-05-05] MEDS: Pantoprazole 40 MG GRANULES PACKET PER TUBE SCH (09:03)
[2020-05-05] MEDS: Ascorbic Acid 500 mg Chewable Tablet PO SCH ×2 (09:03→21:26)
[2020-05-05] MEDS: Colchicine 0.6 MG TAB PO SCH ×2 (09:03→21:26)
[2020-05-05] MEDS: VANCOMYCIN 1.75 GM/350 ML BAG 1.75 GM in Premix Bag 1 BAG IVPB SCH ×2 (11:41→23:10)
[2020-05-05] MEDS ORDERED: Fentanyl CADD 100 ML ONE (12:31)
[2020-05-05] MEDS ORDERED: Fentanyl BOLUS 250 ML IVPB PRN (13:09)
[2020-05-05] MEDS ORDERED: Fentanyl CADD 100 ML IV SCH (13:15)
[2020-05-05] MEDS: HumaLOG 300 UNITS/3 ML VIAL SC PRN (16:30)
[2020-05-05] MEDS ORDERED: Electrolyte Replacement Protocol FS PRN (18:45)
[2020-05-05] MEDS ORDERED: Potassium Bicarbonate/Cit Ac 20 MEQ TAB PER TUBE SCH (19:00)
[2020-05-06] MEDS: Propofol 1,000 MG/100 ML VIAL IV PRN ×4 (03:38→23:20)
[2020-05-06] MEDS: Lorazepam 2 MG/ML VIAL SLOW IVP PRN ×3 (04:38→23:07)
[2020-05-06 04:46] LABS: Anion Gap 12 mmol/L (10-20); BUN (Urea Nitrogen) 26 mg/dL (8.4-25.7); Calc. Creatinine Clearance 0 mL/min (70-130); Calcium 8.3 mg/dL (7.8-10.44); Carbon Dioxide 30 mmol/L (22-29); Chloride 102 mmol/L (98-107); Glucose 121 mg/dL (70-105); Potassium 3.5 mmol/L (3.5-5.1); Sodium 140 mmol/L (136-145)
[2020-05-06 04:47] LABS: #Eosinphils 0.5 thou/uL (0.0-0.7); #Lymphocytes 1.8 thou/uL (1.20-3.40); #Monocytes 0.5 thou/uL (0.11-0.59); #Neutrophils 4.5 thou/uL (1.40-6.50); %Basophils 0.6 % (0.0-1.0); %Eosinophils 6.9 % (0.0-10.0); %Lymphocytes 24.6 % (21.0-51.0); %Monocytes 6.9 % (0.0-10.0); %Neutrophils 61.2 % (42.0-75.0); Hemoglobin 11.1 g/dL (14.0-18.0); Mean Corpuscular HGB CONC 32.9 g/dL (32.0-36.0); Mean Corpuscular Hemoglobin 29.7 pg (27.0-31.0); Mean Corpuscular Volume 90.2 fL (78.0-98.0); Mean Platelet Volume 10.3 fL (7.4-10.4); Platelet Count 165 thou/uL (130-400); RBC Distribution Width 14.4 % (11.5-14.5); Red Blood Cell (RBC) Count 3.76 mill/uL (4.70-6.10); White Blood Cell (WBC) Count 7.3 thou/uL (4.8-10.8)
[2020-05-06] MEDS ORDERED: Fentanyl CADD 100 ML ONE ×2 (06:58→23:15)
[2020-05-06] MEDS ORDERED: Potassium Bicarbonate/Cit Ac 20 MEQ TAB PO SCH (07:00)
[2020-05-06 08:49] LABS: Actual Bicarbonate (HCO3a) 30.2 mEq/L (22-28); Base Excess (BEa) 5.9 mEq/L (-2.0 to +3.0); CO2 Tension 43.1 mmHg (35.0-45.0); Hemoglobin (Hb) 11.8 g/dL (14.0-18.0); O2 Tension (PaO2), arterial 66.9 mmHg (80.0-100.0); pH, Arterial 7.46 (7.35-7.45)
[2020-05-06 08:50] LABS: Analyzer IN Cardio OR; Calcium, Ionized (arterial) 1.16 mmol/L (1.12-1.30); Carboxyhemoglobin (COHb) 1.3 gm% (0.0-3.0); Potassium - ABG Lab 3.51 mmol/L (3.70-5.30); Puncture Site LRA
[2020-05-06 08:51] LABS: ALV-art Gradient 164.425 mmHg (0-20)
[2020-05-06] MEDS: Enoxaparin Sodium 60 MG/0.6 ML SYRINGE SC SCH ×2 (10:02→21:06)
[2020-05-06] MEDS: Zinc Sulfate 220 MG CAP PO SCH (10:03)
[2020-05-06] MEDS: Pantoprazole 40 MG GRANULES PACKET PER TUBE SCH (10:03)
[2020-05-06] MEDS: Cholecalciferol (Vitamin D3) 400 UNITS TAB PO SCH (10:03)
[2020-05-06] MEDS: Ascorbic Acid 500 mg Chewable Tablet PO SCH ×2 (10:03→21:06)
[2020-05-06] MEDS: Colchicine 0.6 MG TAB PO SCH ×2 (10:03→21:06)
[2020-05-06] MEDS: Dexamethasone 1 MG TAB PO SCH (10:04)
[2020-05-06] MEDS: HumaLOG 300 UNITS/3 ML VIAL SC PRN ×3 (10:05→21:39)
[2020-05-06] MEDS: Insulin Glargine 20 UNITS in Pre-Filled Syringe 1 EACH SC SCH ×2 (10:06→21:07)
[2020-05-06] MEDS: VANCOMYCIN 1.75 GM/350 ML BAG 1.75 GM in Premix Bag 1 BAG IVPB SCH ×2 (11:34→23:08)
[2020-05-06 13:38] LABS: Potassium 4.4 mmol/L (3.5-5.1)
[2020-05-06] MEDS: methylPREDNISolone Sod Succ 40 MG VIAL IVP SCH ×2 (14:35→21:07)
[2020-05-06] MEDS ORDERED: Bisacodyl 10 MG SUPP PR PRN (16:18)
[2020-05-06] MEDS: Polyethylene Glycol 3350 17 GM Packet PO PRN (19:16)
[2020-05-06 22:45] LABS: Vancomycin, Trough 13.6 ug/mL
[2020-05-07 04:37] LABS: #Lymphocytes 0.8 thou/uL (1.20-3.40); #Monocytes 0.2 thou/uL (0.11-0.59); %Eosinophils 0.3 % (0.0-10.0); %Lymphocytes 11.6 % (21.0-51.0); %Monocytes 2.4 % (0.0-10.0); %Neutrophils 85.6 % (42.0-75.0); Hemoglobin 11.8 g/dL (14.0-18.0); Mean Corpuscular HGB CONC 32.8 g/dL (32.0-36.0); Mean Corpuscular Hemoglobin 29.5 pg (27.0-31.0); Mean Corpuscular Volume 89.9 fL (78.0-98.0); Mean Platelet Volume 9.9 fL (7.4-10.4); Platelet Count 176 thou/uL (130-400); Red Blood Cell (RBC) Count 3.98 mill/uL (4.70-6.10)
[2020-05-07] MEDS: Lorazepam 2 MG/ML VIAL SLOW IVP PRN ×3 (04:44→16:13)
[2020-05-07 05:02] LABS: Anion Gap 13 mmol/L (10-20); BUN (Urea Nitrogen) 23 mg/dL (8.4-25.7); Calc. Creatinine Clearance 0 mL/min (70-130); Calcium 8.8 mg/dL (7.8-10.44); Carbon Dioxide 27 mmol/L (22-29); Chloride 100 mmol/L (98-107); Glucose 245 mg/dL (70-105); Potassium 4.2 mmol/L (3.5-5.1); Sodium 136 mmol/L (136-145)
[2020-05-07] MEDS: Propofol 1,000 MG/100 ML VIAL IV PRN ×4 (06:04→22:03)
[2020-05-07] MEDS: methylPREDNISolone Sod Succ 40 MG VIAL IVP SCH ×3 (06:06→22:01)
[2020-05-07] MEDS ORDERED: Ivermectin 3 MG TAB PO SCH (09:00)
[2020-05-07] MEDS: Enoxaparin Sodium 60 MG/0.6 ML SYRINGE SC SCH ×2 (09:55→22:00)
[2020-05-07] MEDS: Zinc Sulfate 220 MG CAP PO SCH (09:55)
[2020-05-07] MEDS: Colchicine 0.6 MG TAB PO SCH ×2 (09:55→22:01)
[2020-05-07] MEDS: Pantoprazole 40 MG GRANULES PACKET PER TUBE SCH (09:55)
[2020-05-07] MEDS: Ascorbic Acid 500 mg Chewable Tablet PO SCH ×2 (09:55→22:03)
[2020-05-07] MEDS: Insulin Glargine 20 UNITS in Pre-Filled Syringe 1 EACH SC SCH (09:55)
[2020-05-07] MEDS: Cholecalciferol (Vitamin D3) 400 UNITS TAB PO SCH (09:55)
[2020-05-07] MEDS: Insulin Glargine 30 UNITS in Pre-Filled Syringe 1 EACH SC SCH ×3 (09:55→22:01)
[2020-05-07] MEDS: VANCOMYCIN 1.75 GM/350 ML BAG 1.75 GM in Premix Bag 1 BAG IVPB SCH ×2 (11:46→22:31)
[2020-05-07] MEDS: HumaLOG 300 UNITS/3 ML VIAL SC PRN ×3 (11:47→22:10)
[2020-05-07] MEDS ORDERED: Fentanyl CADD 100 ML ONE (18:15)
[2020-05-08] MEDS: Propofol 1,000 MG/100 ML VIAL IV PRN ×5 (04:16→22:21)
[2020-05-08 05:18] LABS: #Monocytes 0.5 thou/uL (0.11-0.59); #Neutrophils 9.1 thou/uL (1.40-6.50); %Basophils 0.1 % (0.0-1.0); %Eosinophils 0.1 % (0.0-10.0); %Monocytes 4.6 % (0.0-10.0); %Neutrophils 86.2 % (42.0-75.0); Hemoglobin 11.7 g/dL (14.0-18.0); Mean Corpuscular HGB CONC 33.4 g/dL (32.0-36.0); Mean Corpuscular Hemoglobin 30.3 pg (27.0-31.0); Mean Corpuscular Volume 90.8 fL (78.0-98.0); Mean Platelet Volume 10.5 fL (7.4-10.4); Platelet Count 237 thou/uL (130-400); Red Blood Cell (RBC) Count 3.85 mill/uL (4.70-6.10); White Blood Cell (WBC) Count 10.6 thou/uL (4.8-10.8)
[2020-05-08 05:37] LABS: Anion Gap 14 mmol/L (10-20); BUN (Urea Nitrogen) 29 mg/dL (8.4-25.7); Calc. Creatinine Clearance 0 mL/min (70-130); Calcium 8.9 mg/dL (7.8-10.44); Carbon Dioxide 27 mmol/L (22-29); Chloride 99 mmol/L (98-107); Glucose 241 mg/dL (70-105); Potassium 3.9 mmol/L (3.5-5.1); Sodium 136 mmol/L (136-145)
[2020-05-08] MEDS: HumaLOG 300 UNITS/3 ML VIAL SC PRN ×4 (05:41→21:09)
[2020-05-08] MEDS: methylPREDNISolone Sod Succ 40 MG VIAL IVP SCH ×3 (05:41→21:10)
[2020-05-08] MEDS ORDERED: Ivermectin 3 MG TAB PO SCH (09:00)
[2020-05-08] MEDS: Enoxaparin Sodium 60 MG/0.6 ML SYRINGE SC SCH ×2 (09:55→20:50)
[2020-05-08] MEDS: Cholecalciferol (Vitamin D3) 400 UNITS TAB PO SCH (09:55)
[2020-05-08] MEDS: Colchicine 0.6 MG TAB PO SCH ×2 (09:55→20:50)
[2020-05-08] MEDS: Zinc Sulfate 220 MG CAP PO SCH (09:55)
[2020-05-08] MEDS: Insulin Glargine 30 UNITS in Pre-Filled Syringe 1 EACH SC SCH ×2 (09:55→20:51)
[2020-05-08] MEDS: Pantoprazole 40 MG GRANULES PACKET PER TUBE SCH (09:55)
[2020-05-08] MEDS: Ascorbic Acid 500 mg Chewable Tablet PO SCH ×2 (09:55→20:50)
[2020-05-08 10:47] LABS: Vancomycin, Trough 18.2 ug/mL
[2020-05-08] MEDS: VANCOMYCIN 1.75 GM/350 ML BAG 1.75 GM in Premix Bag 1 BAG IVPB SCH ×2 (10:57→22:21)
[2020-05-08] MEDS: Nystatin 500,000 UNITS/5 ML UDCUP SSW SCH ×4 (11:14→20:51)
[2020-05-08] MEDS ORDERED: Fentanyl CADD 100 ML ONE (12:58)
[2020-05-08] MEDS: Lorazepam 2 MG/ML VIAL SLOW IVP PRN (13:15)
[2020-05-08] MEDS: Morphine 2 MG/ML VIAL SLOW IVP PRN (17:33)
[2020-05-09] MEDS: HumaLOG 300 UNITS/3 ML VIAL SC PRN ×4 (03:49→21:15)
[2020-05-09] MEDS: Propofol 1,000 MG/100 ML VIAL IV PRN ×2 (03:49→08:48)
[2020-05-09 04:20] LABS: #Lymphocytes 0.8 thou/uL (1.20-3.40); #Monocytes 0.5 thou/uL (0.11-0.59); #Neutrophils 7.4 thou/uL (1.40-6.50); %Basophils 0.1 % (0.0-1.0); %Eosinophils 0.4 % (0.0-10.0); %Lymphocytes 9.4 % (21.0-51.0); %Monocytes 5.8 % (0.0-10.0); %Neutrophils 84.3 % (42.0-75.0); Hemoglobin 11.2 g/dL (14.0-18.0); Mean Corpuscular HGB CONC 34.5 g/dL (32.0-36.0); Mean Corpuscular Hemoglobin 31.5 pg (27.0-31.0); Mean Corpuscular Volume 91.2 fL (78.0-98.0); Mean Platelet Volume 10.4 fL (7.4-10.4); Platelet Count 239 thou/uL (130-400); RBC Distribution Width 14.1 % (11.5-14.5); Red Blood Cell (RBC) Count 3.55 mill/uL (4.70-6.10); White Blood Cell (WBC) Count 8.7 thou/uL (4.8-10.8)
[2020-05-09 04:36] LABS: Anion Gap 12 mmol/L (10-20); BUN (Urea Nitrogen) 27 mg/dL (8.4-25.7); Calc. Creatinine Clearance 0 mL/min (70-130); Calcium 8.7 mg/dL (7.8-10.44); Carbon Dioxide 28 mmol/L (22-29); Chloride 101 mmol/L (98-107); Glucose 261 mg/dL (70-105); Potassium 3.8 mmol/L (3.5-5.1); Sodium 137 mmol/L (136-145)
[2020-05-09] MEDS: methylPREDNISolone Sod Succ 40 MG VIAL IVP SCH ×3 (05:11→21:12)
[2020-05-09] MEDS: Acetaminophen 325 MG TAB PO PRN (05:29)
[2020-05-09 07:38] LABS: Actual Bicarbonate (HCO3a) 28.2 mEq/L (22-28); Base Excess (BEa) 3.7 mEq/L (-2.0 to +3.0); CO2 Tension 42.2 mmHg (35.0-45.0); Calcium, Ionized (arterial) 1.23 mmol/L (1.12-1.30); Carboxyhemoglobin (COHb) 0.7 gm% (0.0-3.0); Hemoglobin (Hb) 11.9 g/dL (14.0-18.0); O2 Tension (PaO2), arterial 76.3 mmHg (80.0-100.0); pH, Arterial 7.44 (7.35-7.45)
[2020-05-09 07:39] LABS: Puncture Site LRA
[2020-05-09] MEDS: Cholecalciferol (Vitamin D3) 400 UNITS TAB PO SCH (08:49)
[2020-05-09] MEDS: Pantoprazole 40 MG GRANULES PACKET PER TUBE SCH (08:49)
[2020-05-09] MEDS: Enoxaparin Sodium 60 MG/0.6 ML SYRINGE SC SCH ×2 (08:49→21:11)
[2020-05-09] MEDS: Lorazepam 2 MG/ML VIAL SLOW IVP PRN ×2 (08:49→20:25)
[2020-05-09] MEDS: Ascorbic Acid 500 mg Chewable Tablet PO SCH ×2 (08:50→21:11)
[2020-05-09] MEDS: Insulin Glargine 30 UNITS in Pre-Filled Syringe 1 EACH SC SCH (08:50)
[2020-05-09] MEDS: Zinc Sulfate 220 MG CAP PO SCH (08:50)
[2020-05-09] MEDS: Colchicine 0.6 MG TAB PO SCH (08:50)
[2020-05-09] MEDS: Nystatin 500,000 UNITS/5 ML UDCUP SSW SCH (09:01)
[2020-05-09] MEDS ORDERED: Fentanyl CADD 100 ML ONE (09:29)
[2020-05-09] MEDS: VANCOMYCIN 1.75 GM/350 ML BAG 1.75 GM in Premix Bag 1 BAG IVPB SCH ×2 (10:58→23:40)
[2020-05-09] MEDS ORDERED: ALPRAZolam 0.5 MG TAB PO PRN (15:59)
[2020-05-09] MEDS: Insulin Glargine 35 UNITS in Pre-Filled Syringe 1 EACH SC SCH (17:28)
[2020-05-10] MEDS: Lorazepam 2 MG/ML VIAL SLOW IVP PRN ×4 (01:20→20:29)
[2020-05-10] MEDS ORDERED: Fentanyl CADD 100 ML ONE ×2 (02:05→20:28)
[2020-05-10 04:14] LABS: #Lymphocytes 1.5 thou/uL (1.20-3.40); #Monocytes 0.7 thou/uL (0.11-0.59); #Neutrophils 5.9 thou/uL (1.40-6.50); %Basophils 0.2 % (0.0-1.0); %Eosinophils 0.5 % (0.0-10.0); %Lymphocytes 18.4 % (21.0-51.0); %Monocytes 8.7 % (0.0-10.0); %Neutrophils 72.1 % (42.0-75.0); Hemoglobin 10.9 g/dL (14.0-18.0); Mean Corpuscular HGB CONC 32.9 g/dL (32.0-36.0); Mean Corpuscular Hemoglobin 29.6 pg (27.0-31.0); Mean Corpuscular Volume 90.1 fL (78.0-98.0); Mean Platelet Volume 9.9 fL (7.4-10.4); Platelet Count 299 thou/uL (130-400); RBC Distribution Width 14.3 % (11.5-14.5); Red Blood Cell (RBC) Count 3.69 mill/uL (4.70-6.10); White Blood Cell (WBC) Count 8.2 thou/uL (4.8-10.8)
[2020-05-10 04:23] LABS: Anion Gap 12 mmol/L (10-20); BUN (Urea Nitrogen) 27 mg/dL (8.4-25.7); Calc. Creatinine Clearance 221 mL/min (70-130); Calcium 8.7 mg/dL (7.8-10.44); Carbon Dioxide 27 mmol/L (22-29); Chloride 101 mmol/L (98-107); Glucose 203 mg/dL (70-105); Potassium 3.7 mmol/L (3.5-5.1); Sodium 136 mmol/L (136-145)
[2020-05-10] MEDS: HumaLOG 300 UNITS/3 ML VIAL SC PRN ×3 (04:37→20:21)
[2020-05-10] MEDS: Insulin Glargine 35 UNITS in Pre-Filled Syringe 1 EACH SC SCH ×2 (07:40→20:21)
[2020-05-10] MEDS: Ascorbic Acid 500 mg Chewable Tablet PO SCH ×2 (08:00→20:05)
[2020-05-10] MEDS: Zinc Sulfate 220 MG CAP PO SCH (08:00)
[2020-05-10] MEDS: Colchicine 0.6 MG TAB PO SCH (08:00)
[2020-05-10] MEDS: Cholecalciferol (Vitamin D3) 400 UNITS TAB PO SCH (08:00)
[2020-05-10] MEDS: Pantoprazole 40 MG GRANULES PACKET PER TUBE SCH (08:00)
[2020-05-10] MEDS: methylPREDNISolone Sod Succ 40 MG VIAL IVP SCH ×2 (08:00→20:06)
[2020-05-10] MEDS: Enoxaparin Sodium 60 MG/0.6 ML SYRINGE SC SCH ×2 (08:01→10:56)
[2020-05-10] MEDS: VANCOMYCIN 1.75 GM/350 ML BAG 1.75 GM in Premix Bag 1 BAG IVPB SCH ×2 (10:24→22:16)
[2020-05-10] MEDS ORDERED: Furosemide 40 MG/4 ML VIAL IVP SCH (12:16)
[2020-05-10] MEDS: Haloperidol Lactate 5 MG/ML VIAL SLOW IVP SCH ×3 (13:44→20:05)
[2020-05-10] MEDS: Lorazepam 2 MG/ML VIAL SLOW IVP SCH ×3 (13:44→20:05)
[2020-05-10] MEDS: Apixaban 2.5 MG TAB PO SCH (20:05)
[2020-05-11] MEDS: Lorazepam 2 MG/ML VIAL SLOW IVP SCH ×6 (01:14→20:02)
[2020-05-11] MEDS: Haloperidol Lactate 5 MG/ML VIAL SLOW IVP SCH ×6 (01:15→20:02)
[2020-05-11 04:04] LABS: #Lymphocytes 1.3 thou/uL (1.20-3.40); #Monocytes 0.5 thou/uL (0.11-0.59); #Neutrophils 8.2 thou/uL (1.40-6.50); %Basophils 0.1 % (0.0-1.0); %Eosinophils 0.3 % (0.0-10.0); %Lymphocytes 12.9 % (21.0-51.0); %Neutrophils 81.7 % (42.0-75.0); Hemoglobin 11.8 g/dL (14.0-18.0); Mean Corpuscular HGB CONC 32.1 g/dL (32.0-36.0); Mean Corpuscular Hemoglobin 29.9 pg (27.0-31.0); Mean Platelet Volume 9.5 fL (7.4-10.4); Platelet Count 292 thou/uL (130-400); RBC Distribution Width 14.1 % (11.5-14.5); Red Blood Cell (RBC) Count 3.93 mill/uL (4.70-6.10)
[2020-05-11 04:21] LABS: Anion Gap 13 mmol/L (10-20); BUN (Urea Nitrogen) 29 mg/dL (8.4-25.7); Calc. Creatinine Clearance 241 mL/min (70-130); Calcium 8.7 mg/dL (7.8-10.44); Carbon Dioxide 26 mmol/L (22-29); Chloride 100 mmol/L (98-107); Glucose 269 mg/dL (70-105); Potassium 4.1 mmol/L (3.5-5.1); Sodium 135 mmol/L (136-145)
[2020-05-11] MEDS: Cholecalciferol (Vitamin D3) 400 UNITS TAB PO SCH (08:40)
[2020-05-11] MEDS: Zinc Sulfate 220 MG CAP PO SCH (08:40)
[2020-05-11] MEDS: Colchicine 0.6 MG TAB PO SCH (08:40)
[2020-05-11] MEDS: Ascorbic Acid 500 mg Chewable Tablet PO SCH ×2 (08:40→20:02)
[2020-05-11] MEDS: Pantoprazole 40 MG GRANULES PACKET PER TUBE SCH (08:40)
[2020-05-11] MEDS: Apixaban 2.5 MG TAB PO SCH ×2 (08:40→20:02)
[2020-05-11] MEDS: Furosemide 40 MG/4 ML VIAL SLOW IVP SCH (08:40)
[2020-05-11] MEDS: methylPREDNISolone Sod Succ 40 MG VIAL IVP SCH ×2 (08:41→20:03)
[2020-05-11] MEDS: Insulin Glargine 35 UNITS in Pre-Filled Syringe 1 EACH SC SCH ×2 (08:43→16:55)
[2020-05-11 10:51] LABS: Vancomycin, Trough 15.5 ug/mL
[2020-05-11] MEDS: VANCOMYCIN 1.75 GM/350 ML BAG 1.75 GM in Premix Bag 1 BAG IVPB SCH ×2 (11:38→23:37)
[2020-05-11] MEDS: Lorazepam 2 MG/ML VIAL SLOW IVP PRN ×2 (11:47→23:37)
[2020-05-11 13:26] VITALS: BMI 37.5
[2020-05-11] MEDS: Morphine 2 MG/ML VIAL SLOW IVP PRN ×2 (13:31→21:43)
[2020-05-11] MEDS: HumaLOG 300 UNITS/3 ML VIAL SC PRN ×2 (16:08→21:41)
[2020-05-12] MEDS: Haloperidol Lactate 5 MG/ML VIAL SLOW IVP SCH ×6 (00:03→20:40)
[2020-05-12] MEDS: Lorazepam 2 MG/ML VIAL SLOW IVP SCH ×6 (02:44→20:41)
[2020-05-12 04:19] LABS: #Lymphocytes 0.7 thou/uL (1.20-3.40); #Monocytes 0.4 thou/uL (0.11-0.59); #Neutrophils 8.6 thou/uL (1.40-6.50); %Basophils 0.1 % (0.0-1.0); %Eosinophils 0.5 % (0.0-10.0); %Lymphocytes 7.5 % (21.0-51.0); %Monocytes 4.3 % (0.0-10.0); %Neutrophils 87.7 % (42.0-75.0); Hemoglobin 10.8 g/dL (14.0-18.0); Mean Corpuscular HGB CONC 32.2 g/dL (32.0-36.0); Mean Corpuscular Hemoglobin 29.6 pg (27.0-31.0); Mean Corpuscular Volume 91.9 fL (78.0-98.0); Mean Platelet Volume 9.4 fL (7.4-10.4); Platelet Count 307 thou/uL (130-400); RBC Distribution Width 14.4 % (11.5-14.5); Red Blood Cell (RBC) Count 3.65 mill/uL (4.70-6.10); White Blood Cell (WBC) Count 9.8 thou/uL (4.8-10.8)
[2020-05-12 04:32] LABS: Anion Gap 11 mmol/L (10-20); BUN (Urea Nitrogen) 28 mg/dL (8.4-25.7); CRP (Inflammatory) 1.52 mg/dL (= or < 0.5); Calc. Creatinine Clearance 213 mL/min (70-130); Calcium 8.6 mg/dL (7.8-10.44); Carbon Dioxide 30 mmol/L (22-29); Chloride 99 mmol/L (98-107); Glucose 271 mg/dL (70-105); Potassium 3.9 mmol/L (3.5-5.1); Sodium 136 mmol/L (136-145)
[2020-05-12] MEDS: HumaLOG 300 UNITS/3 ML VIAL SC PRN ×3 (05:16→16:20)
[2020-05-12] MEDS: methylPREDNISolone Sod Succ 40 MG VIAL IVP SCH ×2 (08:13→20:41)
[2020-05-12] MEDS: Pantoprazole 40 MG GRANULES PACKET PER TUBE SCH (08:16)
[2020-05-12] MEDS: Ascorbic Acid 500 mg Chewable Tablet PO SCH ×2 (08:16→20:41)
[2020-05-12] MEDS: Colchicine 0.6 MG TAB PO SCH (08:16)
[2020-05-12] MEDS: Apixaban 2.5 MG TAB PO SCH ×2 (08:16→20:41)
[2020-05-12] MEDS: Cholecalciferol (Vitamin D3) 400 UNITS TAB PO SCH (08:16)
[2020-05-12] MEDS: Furosemide 40 MG/4 ML VIAL SLOW IVP SCH (08:30)
[2020-05-12] MEDS: Insulin Glargine 40 UNITS in Pre-Filled Syringe 1 EACH SC SCH ×2 (09:09→20:41)
[2020-05-12] MEDS: Zinc Sulfate 220 MG CAP PO SCH (09:12)
[2020-05-12] MEDS: Morphine 2 MG/ML VIAL SLOW IVP PRN (10:39)
[2020-05-12] MEDS: VANCOMYCIN 1.75 GM/350 ML BAG 1.75 GM in Premix Bag 1 BAG IVPB SCH ×2 (11:30→22:25)
[2020-05-13] MEDS: Haloperidol Lactate 5 MG/ML VIAL SLOW IVP SCH ×6 (00:35→21:41)
[2020-05-13] MEDS: Morphine 2 MG/ML VIAL SLOW IVP PRN (00:36)
[2020-05-13] MEDS: Lorazepam 2 MG/ML VIAL SLOW IVP SCH ×6 (00:36→21:42)
[2020-05-13] MEDS: Lorazepam 2 MG/ML VIAL SLOW IVP PRN ×2 (00:36→03:33)
[2020-05-13 05:25] LABS: #Eosinphils 0.1 thou/uL (0.0-0.7); #Lymphocytes 0.8 thou/uL (1.20-3.40); #Monocytes 0.5 thou/uL (0.11-0.59); %Basophils 0.1 % (0.0-1.0); %Eosinophils 0.5 % (0.0-10.0); %Lymphocytes 7.3 % (21.0-51.0); %Monocytes 4.2 % (0.0-10.0); Hemoglobin 10.5 g/dL (14.0-18.0); Mean Corpuscular HGB CONC 32.5 g/dL (32.0-36.0); Mean Corpuscular Hemoglobin 29.7 pg (27.0-31.0); Mean Corpuscular Volume 91.3 fL (78.0-98.0); Mean Platelet Volume 9.3 fL (7.4-10.4); Platelet Count 298 thou/uL (130-400); RBC Distribution Width 14.3 % (11.5-14.5); Red Blood Cell (RBC) Count 3.54 mill/uL (4.70-6.10); White Blood Cell (WBC) Count 11.4 thou/uL (4.8-10.8)
[2020-05-13 05:42] LABS: BUN (Urea Nitrogen) 27 mg/dL (8.4-25.7); Calc. Creatinine Clearance 227 mL/min (70-130); Calcium 8.6 mg/dL (7.8-10.44); Carbon Dioxide 28 mmol/L (22-29); Glucose 262 mg/dL (70-105)
[2020-05-13] MEDS: HumaLOG 300 UNITS/3 ML VIAL SC PRN (05:48)
[2020-05-13 05:51] LABS: Anion Gap 13 mmol/L (10-20); Chloride 100 mmol/L (98-107); Potassium 3.8 mmol/L (3.5-5.1); Sodium 136 mmol/L (136-145)
[2020-05-13] MEDS: Cholecalciferol (Vitamin D3) 400 UNITS TAB PO SCH (07:59)
[2020-05-13] MEDS: Ascorbic Acid 500 mg Chewable Tablet PO SCH ×2 (08:00→21:42)
[2020-05-13] MEDS: Apixaban 2.5 MG TAB PO SCH ×2 (08:00→21:41)
[2020-05-13] MEDS: Pantoprazole 40 MG GRANULES PACKET PER TUBE SCH (08:00)
[2020-05-13] MEDS: methylPREDNISolone Sod Succ 40 MG VIAL IVP SCH ×2 (08:01→21:42)
[2020-05-13] MEDS: Zinc Sulfate 220 MG CAP PO SCH (08:01)
[2020-05-13] MEDS: Colchicine 0.6 MG TAB PO SCH (08:01)
[2020-05-13] MEDS ORDERED: Furosemide 40 MG/4 ML VIAL ONE ×2 (08:04→08:12)
[2020-05-13] MEDS: Insulin Glargine 40 UNITS in Pre-Filled Syringe 1 EACH SC SCH ×2 (08:14→22:27)
[2020-05-13] MEDS: Furosemide 40 MG/4 ML VIAL SLOW IVP SCH (08:14)
[2020-05-13] MEDS ORDERED: Morphine 2 MG/ML VIAL SLOW IVP PRN (12:21)
[2020-05-13] MEDS ORDERED: Morphine 4 MG/ML VIAL ONE (12:22)
[2020-05-13] MEDS: VANCOMYCIN 1.75 GM/350 ML BAG 1.75 GM in Premix Bag 1 BAG IVPB SCH ×2 (13:15→23:37)
[2020-05-13 15:06] VITALS: BP 108/60
[2020-05-14] MEDS: Lorazepam 2 MG/ML VIAL SLOW IVP SCH ×6 (00:48→21:07)
[2020-05-14] MEDS: Haloperidol Lactate 5 MG/ML VIAL SLOW IVP SCH ×6 (00:48→21:07)
[2020-05-14 05:24] LABS: #Eosinphils 0.1 thou/uL (0.0-0.7); #Lymphocytes 0.6 thou/uL (1.20-3.40); #Monocytes 0.6 thou/uL (0.11-0.59); #Neutrophils 11.1 thou/uL (1.40-6.50); %Basophils 0.2 % (0.0-1.0); %Eosinophils 0.6 % (0.0-10.0); %Lymphocytes 5.2 % (21.0-51.0); %Monocytes 4.6 % (0.0-10.0); %Neutrophils 89.4 % (42.0-75.0); Hemoglobin 10.9 g/dL (14.0-18.0); Mean Corpuscular HGB CONC 32.3 g/dL (32.0-36.0); Mean Corpuscular Hemoglobin 29.5 pg (27.0-31.0); Mean Corpuscular Volume 91.4 fL (78.0-98.0); Mean Platelet Volume 9.4 fL (7.4-10.4); Platelet Count 292 thou/uL (130-400); RBC Distribution Width 14.6 % (11.5-14.5); Red Blood Cell (RBC) Count 3.68 mill/uL (4.70-6.10); White Blood Cell (WBC) Count 12.4 thou/uL (4.8-10.8)
[2020-05-14 05:45] LABS: Anion Gap 12 mmol/L (10-20); BUN (Urea Nitrogen) 25 mg/dL (8.4-25.7); Calc. Creatinine Clearance 231 mL/min (70-130); Calcium 8.5 mg/dL (7.8-10.44); Carbon Dioxide 28 mmol/L (22-29); Chloride 101 mmol/L (98-107); Glucose 174 mg/dL (70-105); Potassium 3.9 mmol/L (3.5-5.1); Sodium 137 mmol/L (136-145)
[2020-05-14] MEDS: HumaLOG 300 UNITS/3 ML VIAL SC PRN ×2 (06:00→10:09)
[2020-05-14] MEDS: Insulin Glargine 40 UNITS in Pre-Filled Syringe 1 EACH SC SCH ×2 (08:14→21:07)
[2020-05-14] MEDS: Furosemide 40 MG/4 ML VIAL SLOW IVP SCH (08:15)
[2020-05-14] MEDS: Zinc Sulfate 220 MG CAP PO SCH (08:15)
[2020-05-14] MEDS: Ascorbic Acid 500 mg Chewable Tablet PO SCH ×2 (08:15→21:07)
[2020-05-14] MEDS: Pantoprazole 40 MG GRANULES PACKET PER TUBE SCH (08:15)
[2020-05-14] MEDS: Apixaban 2.5 MG TAB PO SCH ×2 (08:15→21:07)
[2020-05-14] MEDS: Cholecalciferol (Vitamin D3) 400 UNITS TAB PO SCH (08:15)
[2020-05-14] MEDS: Colchicine 0.6 MG TAB PO SCH (08:15)
[2020-05-14] MEDS: methylPREDNISolone Sod Succ 40 MG VIAL IVP SCH ×2 (08:16→21:06)
[2020-05-14] MEDS ORDERED: Morphine 2 MG/ML VIAL SLOW IVP SCH (10:00)
[2020-05-14] MEDS: VANCOMYCIN 1.75 GM/350 ML BAG 1.75 GM in Premix Bag 1 BAG IVPB SCH ×2 (10:07→22:04)
[2020-05-14 23:00] VITALS: TEMP 97.8
== END 2020-05-14 22:40 | DRG 4 ==
LOC: T4-B 04-10 01:18 → CCU 04-21 11:38
PROVIDERS: ADMIT Internal Medicine; ATTEND Internal Medicine
PROC: XW13325 Transfusion of Convalescent Plasma (Nonautologous) into Peripheral Vein, Percutaneous Approach, New Technology Group 5 (ICD-10-PCS; principal; 2020-04-10)
PROC: 8E0ZXY6 Isolation (ICD-10-PCS; 2020-04-10)
PROC: 5A1955Z Respiratory Ventilation, Greater than 96 Consecutive Hours (ICD-10-PCS; 2020-04-21)
PROC: 0BH17EZ Insertion of Endotracheal Airway into Trachea, Via Natural or Artificial Opening (ICD-10-PCS; 2020-04-21)
PROC: 0B110F4 Bypass Trachea to Cutaneous with Tracheostomy Device, Open Approach (ICD-10-PCS; 2020-05-04)
PROC: 0DH63UZ Insertion of Feeding Device into Stomach, Percutaneous Approach (ICD-10-PCS; 2020-05-04)
PROC: 0B21XFZ Change Tracheostomy Device in Trachea, External Approach (ICD-10-PCS; 2020-05-05)
DX: A41.89 Other specified sepsis (principal); U07.1 COVID-19; J12.82 Pneumonia due to coronavirus disease 2019; J80 Acute respiratory distress syndrome; J15.9 Unspecified bacterial pneumonia; Z68.41 Body mass index [BMI] 40.0-44.9, adult; E87.2 Acidosis; E46 Unspecified protein-calorie malnutrition; R13.10 Dysphagia, unspecified; I10 Essential (primary) hypertension; E11.65 Type 2 diabetes mellitus with hyperglycemia; E66.01 Morbid (severe) obesity due to excess calories; E78.2 Mixed hyperlipidemia; R79.89 Other specified abnormal findings of blood chemistry; R09.81 Nasal congestion; E87.70 Fluid overload, unspecified; R45.1 Restlessness and agitation; B95.7 Other staphylococcus as the cause of diseases classified elsewhere; R53.81 Other malaise; F41.9 Anxiety disorder, unspecified; Z90.49 Acquired absence of other specified parts of digestive tract; Z98.890 Other specified postprocedural states; Z78.1 Physical restraint status
CPT/HCPCS: 36415; 36416; 36430; 36600; 71045; 71250; 80048; 80053; 80076; 80202; 82728; 82805; 83735; 84100; 85025; 86140; 86850; 86900; 86901; 87040; 87070; 87077; 87086; 87149; 87186; 87205; 93306; 94002; 94003; 94640; J0692; J1100; J1630; J1650; J1815; J1940; J2060; J2185; J2250; J2270; J2405; J2704; J2920; J3010; J3370; J3490; J7620; J8540; P9017; S0020